=== PATIENT | female | born 1965 | race Caucasian/White ===

== ENCOUNTER → 2017-09-16 10:53 | Outpatient (CLI) | payer BC, SELFPAY ==
--- NOTE | 2017-09-16 10:58 | XR_ITS ---
XR foot RT min 3V HISTORY: Foot pain ITS.REASON: PLANTAR FASCIITIS ORDERING PHYSICIAN: Rupesh Gee MD PATIENT AGE: 52 years COMPARISON: None FINDINGS: No fracture or dislocation. No lytic or blastic change. There is normal mineralization.. The joint spaces are well-preserved. No significant degenerative/arthritic changes. No erosive changes evident. There is only a small calcaneal spur noted IMPRESSION: Negative, no acute finding
== END ==
PROVIDERS: PCP Family Medicine; Visit Provider Family Medicine
DX: M72.2 Plantar fascial fibromatosis (principal)
CPT/HCPCS: 73630

== ENCOUNTER 2017-11-15 13:00 | Outpatient (RCR) | payer BC, SELFPAY ==
--- NOTE | 2017-11-04 15:41 | HMH.PTOPEV ---
PT Outpatient Evaluation Rehab PT Outpatient Evaluation Start: 11/04/17 15:30 Freq: Status: Active Protocol: Document 11/04/17 15:31 JOSIAS (Rec: 11/04/17 15:40 JOSIAS [id number]) Electronically Signed By Derek Garcia, PT 11/04/17 15:31 Outpatient Therapy Subjective History Subjective History Pt presents acute LBP from lifting/twisting injury while carrying heavy pack of bottled water on 11/02/17. Pt reports R sided LBP w/radicular s/s down R LE to lateral thigh area. Pt reports no h/o previous LBP/injury. Chief Complaint Pain Stiff Swelling Paresthesia Symptom Type Ache Throb Sharp Dull Symptoms Relieved By Prescription Meds Symptoms Aggravated By Bending/Stooping Twisting Lifting Prior Functional Limitations None Current Functional Limitations Lifting Housework Sitting Bending/Stooping Symptom Description Constant but Variable Level of pain today (0-10) 5 Pain scale - at its best (0-10) 5 Pain scale - at its worst (0-10) 9 Lumbopelvic Eval Posture Thoracic Spine Posture Standing Position Neutral Lumbar Spine Posture Standing Position Flattened Assistive device Assistive Devices None / NA Gait Observation General Gait Pattern Observation Antalgic Gait Palapation tenderness right paraspinal tenderness Yes: 3/4 buttock tenderness Yes: 3/4 Accessory Movement L3 right L4 right Range of Motion Lumbar Spine Active Flexion Range of 0-25 Motion (degrees) Lumbar Spine Active Extension Range of 0-20 Motion (degrees) Left Lumbar Spine Lateral Flexion Active 0-10 Range of Motion (degrees) Right Lumbar Spine Lateral Flexion 0-15 Active Range of Motion (degrees) Lumbar Spine ROM Limitations Pain Manual Muscle Test Right Knee Extension Strength Grade 4 Good Knee Flexion Strength Grade 4 Good Hip Flexion Strength Grade 4- Good- Extensor Hallucis Longus Strength Grade 5 Normal Ankle Dorsiflexion Strength Grade 5 Normal Gastronemius/Soleus Strength Grade 5 Normal DTR Rt Patellar 1+ Lt Patellar 1+ Rt Gastroc/Wendy
== END 2017-11-15 13:01 | disposition home or self-care (01) ==
LOC: PT 13:00
PROVIDERS: Family Provider Family Medicine; PCP Family Medicine; Visit Provider Family Medicine
DX: M54.41 Lumbago with sciatica, right side (principal)
CPT/HCPCS: 97010; 97012; 97014; 97035; 97110; 97140; 97163; G0283

== ENCOUNTER 2018-06-22 08:39 | Outpatient (RCR) | payer BC, SELFPAY | END 2018-06-22 08:45 | disposition home or self-care (01) | LOC: PT 08:39 | PROVIDERS: Visit Provider Podiatrist | DX: M54.16 Radiculopathy, lumbar region (principal) | CPT/HCPCS: 97010; 97014; 97163; G0283 ==

== ENCOUNTER → 2020-02-28 09:31 | Outpatient (CLI) | payer BC, SELFPAY ==
--- NOTE | 2020-02-28 09:37 | US_ITS ---
PROCEDURE: US ABDOMEN LIMITED CLINICAL INDICATION: RUQ PAIN COMPARISON: No exams were available for comparison FINDINGS: PANCREAS: Unremarkable. No obvious mass or abnormal fluid collection. No ductal dilatation LIVER: No focal liver lesions demonstrated. Homogeneous echogenicity. No intrahepatic biliary ductal dilatation evident. There is appropriate direction of blood flow within a non dilated portal vein RIGHT KIDNEY: There is a septated cyst along the upper pole of the right kidney at 4.2 x 2.7 cm. GALLBLADDER: No gallstones, gallbladder wall thickening, pericholecystic fluid, or biliary dilatation. IMPRESSION: Septated right renal cyst otherwise negative right upper quadrant ultrasound. Dictated by: Marcos Gillette MD 02/28/2020 12:58 Marcos Gillette MD in [place] 02/28/2020 12:58
== END ==
PROVIDERS: PCP Family Medicine; Visit Provider Family Medicine
DX: R10.11 Right upper quadrant pain (principal)
CPT/HCPCS: 76705

== ENCOUNTER → 2020-04-08 10:28 | Outpatient (CLI) | payer BC, SELFPAY ==
--- NOTE | 2020-04-08 10:32 | NM_ITS ---
PROCEDURE: NM HEPATOBILIARY W PHARM CLINICAL INDICATION: RUQ ABD PAIN COMPARISON: No exams were available for comparison TECHNIQUE: DOSE: 8.6 mCi technetium Choletec and 1.3 mcg of CCK FINDINGS: Homogeneous activity is present within the hepatic parenchyma. Activity is present in the gallbladder by 10 minutes. Activity is present in the small bowel by 10 minutes. The gallbladder ejection fraction is calculated to be 12 percent. Mild rib pain reported with CCK infusion IMPRESSION: No evidence of common or cystic duct obstruction. Low gallbladder ejection fraction of 12 percent with mild pain reported with CCK infusion which could be seen with gallbladder dyskinesia. Please correlate with clinical parameters Dictated by: Marcos Gillette MD 04/08/2020 16:53 Marcos Gillette MD in [place] 04/08/2020 16:53
--- NOTE | 2020-04-08 10:46 | HMH.ITSHM ---
Current Home Medications as stated by this patient Marcie Gloria or community relations representative. []CYMBALTA SPIRONOLACTONE STEFANIA CHAVEZ
== END ==
PROVIDERS: PCP Family Medicine; Visit Provider Family Medicine
DX: R10.11 Right upper quadrant pain (principal)
CPT/HCPCS: 78227; A9537; J2805

== ENCOUNTER → 2020-05-15 10:39 | Outpatient (CLI) | payer BC, SELFPAY ==
--- NOTE | 2020-05-15 10:57 | ECG_ITS ---
APPROVED REPORT Exam: Resting ECG HR:72 bpm ECG Measurements Heart Rate 72 AXES TN 130 P 56 QRSd 82 QRS 49 QT 378 T 75 QTc 413 Conclusion Normal sinus rhythm Possible Left atrial enlargement Nonspecific T wave abnormality Abnormal ECG Electronically signed by : Aguilar Han, 05/16/2020 20:57:48
[2020-05-15 11:12] LABS: Basophils # 0.1 K/mm3 (0-0.2); Basophils % 1.5 % (0.1-2.0); Eosinophils # 0.2 K/mm3 (0.0-0.4); Eosinophils % 3.9 % (0.1-12.0); Hematocrit 41.5 % (37.0-47.0); Hemoglobin 13.9 g/dL (12.2-16.2); Lymphocytes # 1.6 K/mm3 (0.7-4.5); Lymphocytes % 33.2 % (10-50); Mean Corpuscular HGB Conc 33.5 g/dL (31.8-35.4); Mean Corpuscular Hemoglobin 29.8 pg (27.0-31.2); Mean Corpuscular Volume 89.1 fl (81-99); Mean Platelet Volume 7.6 fl (7.4-10.4); Monocytes # 0.4 K/mm3 (0.1-1.0); Monocytes % 7.3 % (1.7-9.3); Neutrophils # 2.6 K/mm3 (1.8-7.8); Neutrophils % 54.1 % (37.0-80.0); Platelet Count 296 K/mm3 (142-424); Red Blood Count 4.66 M/mm3 (4.20-5.40); Red Cell Distribution Width 13.6 % (11.5-17.5); White Blood Count 4.8 K/mm3 (4.8-10.8)
[2020-05-15 13:20] LABS: Coronavirus 19 IgG Antibody Negative (Negative); Coronavirus 19 IgM Antibody Negative (Negative)
[2020-05-15 13:25] LABS: Chloride 100 mmol/L (98-107); Potassium 4.5 mmoL/L (3.5-5.1); Sodium 137 mmol/L (136-145)
[2020-05-15 13:28] LABS: Alanine Aminotransferase 22 U/L (12-78); Albumin Level 4.8 g/dl (3.5-5.0); Albumin/Globulin Ratio 1.7 (1.1-1.8); Alkaline Phosphatase 68 U/L (38-126); Anion Gap 12.5 mEq/L (5-15); Aspartate Amino Transferase 25 U/L (14-36); Bilirubin,Total 0.5 mg/dl (0.2-1.3); Blood Urea Nitrogen 13 mg/dl (7-17); Carbon Dioxide 29 mmol/L (22.0-30.0); Estimated Glomerular Filt Rate 87 ml/min (>60); GFR (African American) 105 ML/MIN (>60); Globulin 2.9 g/dL (1.3-3.2); Total Protein,Serum 7.7 g/dl (6.3-8.2)
[2020-05-15 13:29] LABS: Calcium 10.3 mg/dl (8.4-10.2); Glucose 106 mg/dl (74-100)
== END ==
PROVIDERS: Visit Provider Surgery
DX: Z01.812 Encounter for preprocedural laboratory examination (principal); Z11.52 Encounter for screening for COVID-19; K82.8 Other specified diseases of gallbladder
CPT/HCPCS: 36415; 80053; 85025; 86328; 93005

== ENCOUNTER 2020-05-17 06:08 | Day surgery (SDC) | payer BC, SELFPAY ==
[2020-05-13 10:45] VITALS: BMI 25.7
[2020-05-17] VITALS (15 sets, daily range): BP systolic 144–163; BP diastolic 81–98; PULSE 69–79; RESP 18; TEMP 36.1–43; O2SAT 96–100
--- NOTE | 2020-05-17 06:51 | HMH.ANESCL ---
[facility] Anesthesia Checklist - Structural Data Admitted From: Home Planned Operative Procedure/s: tripp connellye Consent for Planned Operative Procedure(s) Verified: Yes - Additional verifications Anesthesia Reactions: No Hx Blood Transfusions: Yes Blood Transfusion Reaction: No - Airway Assessment C-Spine Mobility Assessed: Yes TMJ Mobility Assessed: Yes Dentition: Good Dentition - Neurological Assessment Level of Consciousness: Awake, Alert, Appropriate - Anesthesia Plan Anesthesia Risk discussed: Yes Anesthesia Plan: Verified ASA Class: II Anesthesia Type: General [facility] History I have reviewed the patient's past medical history: Yes Medical History: Denies:: Cancer, Diabetes Mellitus Type 1, Diabetes Mellitus Type 2, Internal Pacemaker, MRSA, Seizures *Have you ever received a pneumonia vaccine?: No *Have you received a flu vaccine this season?: Yes Other Medical History: Denies: Blood Transfusion Reaction Anesthesia experience/problems:: none Laterality Cases: Right: Other Other Surgeries: Yes: Colonoscopy, Hysterectomy-Partial. No: Pacemaker Amputation: No Fractures: Yes (WRIST) - *Social History Last grade of school completed: Advanced degree Smoking Status: Never smoker Alcohol Intake: current Alcohol Intake Frequency:: holidays/special occasions only Substance Use Type: denies use *Occupational Status:: other Housing: house Household Members: children *Travel in the last 8 weeks: None Family Hx:: No significant family history
--- NOTE | 2020-05-17 07:55 | P.OP_ITS ---
Date of procedure: 05/17/20 Pre-op Diagnosis:: Biliary dyskinesia Post-op Diagnosis:: Chronic cholecystitis Procedure performed:: Laparoscopic cholecystectomy Surgeon:: Alexander Blanco MD Nurse Discharge Planner(s):: Srinivas NURSE MONITORING:: Aguilar Brown Anesthesia: GETA Estimated blood loss (mL): 10 Operative findings:: Infundibular thickening Enlarged node of [place] Operative note:: After informed consent was obtained, the patient was taken to the operating room and placed in the supine position. General anesthesia was induced and the abdomen was prepped and draped in a sterile fashion. After infiltration with local anesthetic an infraumbilical incision was made. A Veress needle was placed in position. The abdomen was insufflated. A 5 mm optical trocar was placed in position. Under direct visualization, a 12 mm trocar was placed in the subxiphoid position and 2 additional 5 mm trocars were placed in the right upper quadrant. The gallbladder was elevated up and over the liver margin. The tissue around the cystic duct was carefully dissected. 3 clips were placed proximally and the duct was transected with harmonic tristen. Harmonic tristen were then utilized to dissect the gallbladder away from the liver margin with careful attention to the control of the cystic artery. The gallbladder was placed in a retrieval bag and removed through the subxiphoid trocar site. The right upper quadrant was thoroughly irrigated. No active bleeding or bile leak was noted. Fascia at the subxiphoid trocar site was reapproximated utilizing the NeoClose device. The remaining trocars were removed. All wounds were irrigated and skin was closed with 4-0 Monocryl in a subcuticular fashion. Steri-Strips were applied. The patient's anesthetic agents were reversed and extubation was completed prior to transfer to recovery in stable condition. Condition: stable Disposition: PACU Specimens:: Gallbladder Complications:: No immediate
--- NOTE | 2020-05-17 08:08 | P.PN_ITS ---
[facility] Anesthesia Record Part I Intake, IV Amount: 450 Estimated blood loss (mL): 5 Urine output (mL): 0 Blood Products used (#): none Blood Pressure: 161/98 SaO2: 97 Pulse Rate: 74 Respiratory Rate: 18 Temperature: 97.2 F Patient is:: Drowsy, Stable Stable to PACU at:: 08:04
--- NOTE | 2020-05-17 12:45 | HMH.ANESII ---
[facility] Anesthesia Record Part II Discharge Time: 08:34 Destination: Surgical Day Care (OP Surgery) PACU nurse assessment reviewed?: Yes Patient Condition:: Good Anesthesia Complications:: None Swallowing reflex intact?: Yes Cyanosis?: No Blood Pressure: 150/82 Pulse Rate: 79 Temperature: 97.8 F Mental Status: Alert & Oriented Pain level:: 3 Nausea and/or vomitting:: None Intake, IV Amount: 50
== END 2020-05-17 09:40 | disposition home or self-care (01) ==
PROVIDERS: PCP Family Medicine; Visit Provider Surgery
PROC: 0FT44ZZ Resection of Gallbladder, Percutaneous Endoscopic Approach (ICD-10-PCS; CPT 47562; principal; 2020-05-17 07:30)
DX: K81.1 Chronic cholecystitis; Z79.899 Other long term (current) drug therapy
CPT/HCPCS: 47562; 96374; J2405; J2710

== ENCOUNTER 2021-01-26 11:47 | Emergency (ER) | payer BC, SELFPAY ==
[2021-01-26 11:50] VITALS: BP 140/89; PULSE 90; RESP 19; TEMP 36.8; O2SAT 98; BMI 24.7
--- NOTE | 2021-01-26 12:21 | HMH.EDUTC ---
[facility] [place] Disposition Clinical Impression: Sinusitis Qualifiers: Sinusitis location: unspecified location Chronicity: unspecified Qualified Code(s): J32.9 - Chronic sinusitis, unspecified Disposition: Home, Self-Care Condition on Discharge: Good Instructions: Sinusitis, Prednisone, Amoxicillin and Clavulanic Acid Additional Instructions: *Monitor Temp, Over the counter Motrin or Tylenol as directed/as needed Tylenol every 4 hours and Motrin every 6 hours (as long as your family doctor has told you that you can take it) for fever or pain. and straight to ER if unable to lower temp less than 101.0 after medication given *Warm salt water gargles may help to soothe the throat *Throat Lozenges *Warm fluids like tea with honey may help to soothe the throat *Sleep elevated *Humidifier/Vaporizer Your throat swab was sent for culture. Those results are typically sent to your primary care. Be sure to follow up in 2-3 days with your family doctor/primary care physician if no improvement so they can review those result and treat if necessary. If you don?t have a primary care doctor, I recommend you get one but in the mean time, you will have to return to a walk in clinic Follow up IMMEDIATELY for new or worsening symptoms or no Noticeable improvement over the next 48-72 hours. 911 for difficulty breathing or swallowing You were tested for today for COVID19 your test result should be back in the next 24-48 hours, you was given Handout to [facility] portal to check your results if you have issues logging on you may call the [facility] for your Results You was given a handout with instructions for Self Quarantine and Self isolation for while you wait on test results and what to do if they are positive If you are positive the Health Dept will be contacting you also Make sure to take your Vitamins Vit. C Vit D and Zinc if you can take them Prescriptions: Amoxicillin/Potassium Clav [Augmentin 875-125 Tablet] 1 tab PO Q12H 7 Days #14 tab Transmission Status: Pending to [facility] # predniSONE [Deltasone 10mg tablet] 10 mg PO BID 5 Days #10 tab Transmission Status: Pending to [facility] # Benzonatate [Tessalon Perle 100mg Cap*] 100 mg PO TID PRN #15 cap PRN Reason: Cough Transmission Status: Pending to [facility] #[id number] Referrals: Rupesh Gee MD [Primary Care Provider] - As needed Forms: Work/School Release Time of Disposition: 12:38 Medical Decision Making - [place] Inquiry Pt receiving controlled substance: No [place] was queried for this patient: No Vital Signs: 01/26/21 11:50 Temperature 98.3 F Temperature Source Oral Pulse Rate [Right Brachial] 90 Respiratory Rate 19 Blood Pressure [Right Arm] 140/89 Blood Pressure Mean [Right Arm] 106 Blood Pressure Source [Right Arm] Automatic Cuff Blood Pressure Position [Right Arm] Sitting 02 Sat by Pulse Oximetry 98 Oxygen Delivery Method Room Air Orders (Tests/Meds): ORDERS Category Date Time Status Covid-19 Nasal PCR ([facility]) Routine Lab 01/26/21 12:21 Ordered [facility] UTC HPI - General Stated complaint: Upper Resp congestion Time Seen by Provider: 01/26/21 12:22 Mode of Arrival: Ambulatory Source of Information: Patient Limitations: No Limitations Description of Symptoms (Recalled from Triage Doc. by RN): PATIENT C/O SINUS PRESSURE AND CONGESTION SINCE WEDNESDAY HEENT Symptoms (Recalled from RN notes): Yes Resp Symptoms (Recalled from RN notes): No Skin Symptoms (Recalled from RN notes): No MS Symptoms (Recalled from RN notes): No Functional Status (Recalled from RN notes): WNL - History of Present Illness Provider Complaint: Patient states that she has not felt well for over a week States that she is having sinus pain and pressure along with dry hacky cough since Last States that she has been around her son that had strep throat and was around alot of people at her fathers so she was concerned with COVID exposure so she c
[2021-01-26 12:38] LABS: UTC Strep Screen (Rapid) Negative (Negative)
[2021-01-26 12:40] VITALS: BP 140/89; PULSE 90; RESP 19; TEMP 36.8; O2SAT 98
== END 2021-01-26 12:46 | disposition home or self-care (01) ==
PROVIDERS: Emergency Provider Nurse Practitioner; PCP Family Medicine
DX: U07.1 COVID-19 (principal); J32.9 Chronic sinusitis, unspecified
CPT/HCPCS: 87880; 99203; C9803; G0463; U0003; U0005

== ENCOUNTER → 2021-03-24 11:19 | Outpatient (CLI) | payer BC, SELFPAY ==
[2021-03-24 11:50] LABS: Basophils # 0.1 K/mm3 (0-0.2); Basophils % 1.2 % (0.1-2.0); Eosinophils # 0.2 K/mm3 (0.0-0.4); Eosinophils % 3.3 % (0.1-12.0); Hematocrit 42.1 % (37.0-47.0); Hemoglobin 14.1 g/dL (12.2-16.2); Lymphocytes % 34.1 % (10-50); Mean Corpuscular HGB Conc 33.5 g/dL (31.8-35.4); Mean Corpuscular Hemoglobin 30.1 pg (27.0-31.2); Mean Platelet Volume 8.9 fl (7.4-10.4); Monocytes # 0.3 K/mm3 (0.1-1.0); Monocytes % 4.7 % (1.7-9.3); Neutrophils # 3.3 K/mm3 (1.8-7.8); Neutrophils % 56.7 % (37.0-80.0); Platelet Count 306 K/mm3 (142-424); Red Blood Count 4.68 M/mm3 (4.20-5.40); Red Cell Distribution Width 13.4 % (11.5-17.5); White Blood Count 5.7 K/mm3 (4.8-10.8)
[2021-03-24 14:01] LABS: Alanine Aminotransferase 16 U/L (12-78); Albumin Level 4.7 g/dl (3.5-5.0); Albumin/Globulin Ratio 1.8 (1.1-1.8); Alkaline Phosphatase 70 U/L (38-126); Anion Gap 12.7 mEq/L (5-15); Aspartate Amino Transferase 29 U/L (14-36); Bilirubin,Total 0.4 mg/dl (0.2-1.3); Blood Urea Nitrogen 18 mg/dl (7-17); Calcium 9.9 mg/dl (8.4-10.2); Carbon Dioxide 31 mmol/L (22.0-30.0); Chloride 98 mmol/L (98-107); Chol/HDL Ratio 3.3 (1-3.5); Cholesterol 238 mg/dl (140-200); Estimated Glomerular Filt Rate 86 ml/min (>60); GFR (African American) 104 ML/MIN (>60); Globulin 2.6 g/dL (1.3-3.2); Glucose 100 mg/dl (74-100); HDL Cholesterol 73 mg/dl (40-60); Potassium 4.7 mmoL/L (3.5-5.1); Sodium 137 mmol/L (136-145); Total Protein,Serum 7.3 g/dl (6.3-8.2); Triglycerides 162 mg/dl (30-150); VLDL Cholesterol 32 mg/dL (0-40)
[2021-03-24 14:12] LABS: Direct LDL Cholesterol 125.89 mg/dL (100-129)
[2021-03-24 14:18] LABS: 25-OH Vitamin D, Total 59.5 ng/mL (30-100)
[2021-03-24 15:04] LABS: Vitamin B12 > 1000 pg/mL (239-931)
[2021-03-24 15:47] LABS: Thyroid Stimulating Hormone 1.92 uIU/mL (0.465-4.68)
== END ==
PROVIDERS: Visit Provider Family Medicine
DX: I10 Essential (primary) hypertension (principal); E55.9 Vitamin D deficiency, unspecified; E53.8 Deficiency of other specified B group vitamins; Z79.899 Other long term (current) drug therapy
CPT/HCPCS: 36415; 80053; 80061; 82306; 82607; 84443; 85025

== ENCOUNTER 2021-03-26 10:50 | Outpatient (RCR) | payer BC, SELFPAY ==
--- NOTE | 2021-03-26 11:44 | HMH.PTOPEV ---
PT Outpatient Evaluation Rehab PT Outpatient Evaluation Start: 03/26/21 10:58 Freq: Status: Active Protocol: Document 03/26/21 11:27 EDWIN (Rec: 03/26/21 11:36 EDWIN [id number]) Electronically Signed By Major Navas, PT 03/26/21 11:27 Outpatient Therapy Subjective History Subjective History Patient is a 55 year old female presenting to outpatient PT with reports of chronic B cervical spine pain of insidious onset. Patient also reports acute L shoulder pain after a reaching/lifting accident at work. No imaging to report. Comorbidities include hx of HTN, cholecystectomy and R wrist ORIF. Chief Complaint Pain,Stiff Symptom Type Throb,Burning Symptoms Relieved By Rest/Positioning,Heat,OTC Meds Symptoms Aggravated By Physical Activity,Lifting Prior Functional Limitations None Current Functional Limitations Reaching,Lifting,Housework, Driving,Sleeping,Recreation Activity Symptom Description Constant but Variable Level of pain today (0-10) 4 Pain scale - at its best (0-10) 4 Pain scale - at its worst (0-10) 6 Cervical Eval Palpation Cervical Muscles R Suboccipital,L Suboccipital, R Upper Trapezius,L Upper Trapezius Cervical/Thoracic Palpation Findings Tenderness Posture Head/C-Spine Posture Sitting Position Neutral Position Head/C-Spine Posture Standing Position Neutral Position Flexibility Deficits Upper Trapezius Muscle Length (R) Moderate Tightness,(L) Moderate Tightness Levaetor Scapulae Muscle Length (R) Moderate Tightness,(L) Moderate Tightness Pectoralis Minor Muscle Length (R) Moderate Tightness,(L) Moderate Tightness Passive Joint Mobility Cervical PIVM WNL: R OA L OA R AA L AA R C2/3 L C2/3 R C3/4 L C3/4 R C4/5 L C4/5 R C5/6 L C5/6 R C6/7 L C6/7
== END 2021-03-26 10:55 | disposition home or self-care (01) ==
LOC: PT 10:50
PROVIDERS: PCP Family Medicine; Visit Provider Family Medicine
DX: M25.512 Pain in left shoulder (principal); M62.838 Other muscle spasm
CPT/HCPCS: 97163

== ENCOUNTER → 2021-11-04 15:44 | Outpatient (POV) | payer SELFPAY | PROVIDERS: Visit Provider Dermatology | DX: Z00.00 Encounter for general adult medical examination without abnormal findings (principal) ==

== ENCOUNTER → 2021-11-05 10:02 | Outpatient (CLI) | payer SELFPAY ==
--- NOTE | 2021-11-05 10:07 | CT_ITS ---
FINAL REPORT TECHNIQUE: Thin section axial images were obtained through the heart and coronary arteries per CT coronary calcium score protocol. This study was performed with techniques to keep radiation doses as low as reasonably achievable (ALARA). Individualized dose reduction techniques using automated exposure control or adjustment of mA and/or kV according to the patient's size were employed. CLINICAL HISTORY: High cholesterol, family hx of heart disease FINDINGS: On the axial images, there is calcification within right coronary artery. This gives a coronary artery calcium score of 1 based on the Agatston scale. This coronary calcium score places the patient within the 41st percentile based on age and gender. The heart is normal in size. There is no pleural or pericardial effusion. Limited evaluation of the lungs reveal no suspicious nodule. IMPRESSION: Calcium score of 1 placing the patient at the 41st percentile. Reviewed, Interpreted and Dictated by River Rico MD Transcribed by Vania Fleming Authenticated and . [facility]
== END ==
PROVIDERS: PCP Family Medicine; Visit Provider Family Medicine
DX: Z13.6 Encounter for screening for cardiovascular disorders (principal)
CPT/HCPCS: 75571

== ENCOUNTER 2021-12-13 09:44 | Emergency (ER) | payer SELFPAY ==
[2021-12-13 10:10] VITALS: BP 146/88; PULSE 98; RESP 19; TEMP 36.9; O2SAT 97; BMI 26.1
[2021-12-13 10:16] LABS: Apearance,Urine Cloudy (Clear); Bilirubin,Urine Negative (Negative); Blood, Urine 3+ (Negative); Color,Urine Dark Yellow (Yellow); Glucose,Urine (UA) Negative (Negative); Ketones,Urine Negative (Negative); PH,Urine 7.5 (5.0-8.5); Protein,Urine Negative (Negative); Specific Gravity, Urine 1.015 (1.005-1.030)
[2021-12-13 10:17] LABS: UTC Leukocyte Esterase,Urine 3+ (Negative); UTC Nitrate,Urine Negative (Negative); Urobilinogen,Urine 0.2 EU/dl (0.2)
--- NOTE | 2021-12-13 10:25 | HMH.EDUTC ---
[facility] [place] Clinical Impression: UTI (urinary tract infection) Qualifiers: Urinary tract infection type: acute cystitis Hematuria presence: with hematuria Qualified Code(s): N30.01 - Acute cystitis with hematuria Disposition: Home, Self-Care Condition on Discharge: Good Instructions: Urinary Tract Infection Additional Instructions: Increase fluids, water and not soda or tea. Can drink cranberry juice or cranberry extract. White front to back Wear cotton underwear Empty bladder after intercourse Start antibiotics immediately and make sure you take the full course although you may start to see improvement over the next 48 hours. You can eat yogurt or take probiotics to decrease diarrhea or yeast infection caused by the antibiotic Be sure to follow-up anytime for new or worsening symptoms in 48 hours for wound urine culture results be sure to let you PCP no recent urine for culture so they can request records and ensure that you have appropriate antibiotic if you are not getting better or getting worse. If symptoms worsen or do not improve return or be seen in the ER. Follow-up with primary care this week. Prescriptions: cephALEXin [Cephalexin 500mg Tab] 500 mg PO BID 7 Days #14 tab Transmission Status: Pending to [facility] Referrals: Rupesh Gee MD [Primary Care Provider] - Time of Disposition: 10:31 Medical Decision Making - [place] Inquiry Pt receiving controlled substance: No Vital Signs: 12/13/21 10:10 Temperature 98.5 F Temperature Source Oral Pulse Rate [Right Brachial] 98 H Respiratory Rate 19 Blood Pressure [Right Arm] 146/88 H Blood Pressure Mean [Right Arm] 107 Blood Pressure Source [Right Arm] Automatic Cuff Blood Pressure Position [Right Arm] Sitting 02 Sat by Pulse Oximetry 97 Oxygen Delivery Method Room Air - Lab Data Lab Results 12/13/21 10:04: Urine Color Dark yellow, Urine Appearance Cloudy, Urine pH 7.5, Ur Specific [place] 1.015, Urine Protein Negative, Urine Glucose (UA) Negative, Urine Ketones Negative, Urine Blood 3+, Urine Nitrate Negative, Urine Bilirubin Negative, Urine Urobilinogen 0.2, Ur Leukocyte Esterase 3+ A Orders (Tests/Meds): ORDERS Category Date Time Status Urine Culture Stat Micro 12/13/21 10:16 Ordered [facility] [place] HPI - General Chief complaint: Urgent Treatment Center Stated complaint: Possible UTI Time Seen by Provider: 12/13/21 10:25 Mode of Arrival: Ambulatory Source of Information: Patient Limitations: No Limitations Description of Symptoms (Recalled from Triage Doc. by RN): PATIENT C/O FREQUENT URINATION, PRESSURE IN BLADDER, AND STRONG ODOR TO URINE SINCE LAST NIGHT HEENT Symptoms (Recalled from RN notes): No Resp Symptoms (Recalled from RN notes): No Skin Symptoms (Recalled from RN notes): No MS Symptoms (Recalled from RN notes): No Functional Status (Recalled from RN notes): WNL - History of Present Illness Provider Complaint: 56 yr old female presents for urinary freq,urgency,burning,low back pain and pelvic pain - Related Data Home Medications Medication Instructions Recorded Confirmed Duloxetine HCl 30 mg PO DAILY 12/04/18 05/29/20 cholecalciferol (vitamin D3) 25 25 mcg PO DAILY 04/16/20 05/29/20 mcg (1,000 unit) capsule cyanocobalamin (vitamin B-12) 3,000 mcg PO DAILY 04/16/20 05/29/20 3,000 mcg capsule mirabegron 50 mg tablet,extended 50 mg PO DAILY 04/16/20 05/29/20 release 24 hr multivitamin 1 tab PO DAILY 04/16/20 05/29/20 soy isoflavone-black cohosh 1 cap PO DAILY 04/16/20 05/29/20 root-magnolia bark 155 mg capsule spironolactone 100 mg tablet 100 mg PO DAILY 04/16/20 05/29/20 vitamin E (dl, acetate) 90 mg (200 450 mg PO DAILY 04/16/20 05/29/20 unit) capsule Bacillus Coagulans/Inulin 1 each PO DAILY 05/13/20 05/29/20 [Probichew 21 Billion Cell Chw] Soy Isofla/Blk Cohosh/Mag Bark 155 mg PO DAILY 05/13/20 05/29/20 [Estroven 155 mg Capsule] Zinc 50 mg PO DAILY 05/13/20 05/29/20 Previou
[2021-12-13 10:34] VITALS: BP 146/88; PULSE 98; RESP 19; TEMP 36.9; O2SAT 97
== END 2021-12-13 10:36 | disposition home or self-care (01) ==
PROVIDERS: Emergency Provider Nurse Practitioner Family; PCP Family Medicine
DX: N30.01 Acute cystitis with hematuria (principal)
CPT/HCPCS: 81003; 87086; 87088; 87186; 99212; G0463

== ENCOUNTER 2021-12-31 09:09 | Emergency (ER) | payer BC, SELFPAY ==
[2021-12-31 10:10] VITALS: BP 164/102; PULSE 83; RESP 18; TEMP 36.8; O2SAT 97; BMI 26.5
--- NOTE | 2021-12-31 10:40 | EXP.UTC ---
Discharge Plan Disposition Patient Disposition: Home, Self-Care Condition: Good Prescriptions Prescriptions: New methylprednisolone [Medrol (Woodrow)] 4 mg tablets,dose pack See Rx Instructions .Route .COMPLEX 6 Days Qty: 21 0RF Rx Instructions: taper pack; No Action spironolactone 100 mg tablet 100 mg PO DAILY Myrbetriq 50 mg tablet extended release 24 hr 50 mg PO DAILY multivitamin Tablet 1 tab PO DAILY cyanocobalamin (vitamin B-12) 3,000 mcg capsule 3,000 mcg PO DAILY vitamin E (dl, acetate) 200 unit capsule 450 mg PO DAILY cholecalciferol (vitamin D3) 25 mcg (1,000 unit) capsule 25 mcg PO DAILY Estroven 155 mg capsule 1 cap PO DAILY cephalexin 500 MG tablet 500 mg PO BID 7 Days Qty: 14 0RF duloxetine 30 MG capsule,delayed release(DR/EC) 30 mg PO DAILY Label Comments: TAKE 1 CAPSULE BY MOUTH EVERY DAY zinc 50 MG tablet 50 mg PO DAILY soy isofla-blk cohosh-mag bark 155 MG capsule 155 mg PO DAILY bacillus coagulans-inulin 1 EACH tablet,chewable 1 each PO DAILY prednisone 10 MG tablet 10 mg PO BID 5 Days Qty: 10 0RF amoxicillin-pot clavulanate 1 EACH tablet 1 tab PO Q12H 7 Days Qty: 14 0RF benzonatate 100 MG capsule 100 mg PO TID PRN (Reason: Cough) Qty: 15 0RF Referrals Follow up/Referrals: Rupesh Gee MD [Primary Care Provider] - See instructions Activity Restrictions/Add. Instructions Additional Instructions/Restrictions: Cool compresses may help with swelling Over the counter Benadryl for itching Start oral steriods tomorrow Return if needed Straight to ER if any life threatening symptoms Clinical Impressions Clinical Impression: Allergic reaction Discharge ED Provider: Elyssa Judd [facility] [place] General Stated complaint: Possible insect bite RT ankle inflammation Mode of Arrival: Ambulatory Source of Information: Patient Limitations: No Limitations Time Seen by Provider: 12/31/21 10:40 Description of Symptoms (Recalled from Triage Doc. by RN): PATIENT C/O REACTION TO A BUG BITE/STING TO RIGHT OUTER ANKLE THAT HAPPENED LAST NIGHT. REDNESS, SWELLING AND WARMTH NOTED TO SITE HEENT Symptoms (Recalled from RN notes): No Resp Symptoms (Recalled from RN notes): No Skin Symptoms (Recalled from RN notes): Yes MS Symptoms (Recalled from RN notes): No Functional Status (Recalled from RN notes): WNL History of Present Illness Provider Complaint: Patient states that she was bitten or stung by something on the outside of her right ankle States that she has had swelling and redness ever since States that she has took several zyrtec but not helped much and sometimes has to have a shot Related Data Home Medications Medication Instructions Recorded Confirmed duloxetine 30 mg capsule,delayed 30 mg PO DAILY Anxiety 12/04/18 05/29/20 release cholecalciferol (vitamin D3) 25 25 mcg PO DAILY Supplement 04/16/20 05/29/20 mcg (1,000 unit) capsule cyanocobalamin (vitamin B-12) 3,000 mcg PO DAILY Supplement 04/16/20 05/29/20 3,000 mcg capsule mirabegron 50 mg tablet,extended 50 mg PO DAILY overactive bladder 04/16/20 05/29/20 release 24 hr (Myrbetriq) multivitamin 1 tab PO DAILY Supplement 04/16/20 05/29/20 soy isoflavone-black cohosh 1 cap PO DAILY Supplement 04/16/20 05/29/20 root-magnolia bark 155 mg capsule (Estroven) spironolactone 100 mg tablet 100 mg PO DAILY blood pressure 04/16/20 05/29/20 vitamin E (dl, acetate) 90 mg (200 450 mg PO DAILY supplements 04/16/20 05/29/20 unit) capsule bacillus coagulans 21 billion 1 each PO DAILY Supplement 05/13/20 05/29/20 cell-inulin 1 gram chewable tablet soy isoflavone-black cohosh 155 mg PO DAILY Supplement 05/13/20 05/29/20 root-magnolia bark 155 mg capsule zinc 50 mg tablet 50 mg PO DAILY Supplement 05/13/20 05/29/20 Previous Rx's Medication Instructions Recorded amoxicillin 875 mg-potassium 1 tab PO Q12H 7 days #14 tabs
[2021-12-31 10:58] VITALS: BP 164/102; PULSE 83; RESP 18; TEMP 36.8; O2SAT 97
== END 2021-12-31 11:05 | disposition home or self-care (01) ==
PROVIDERS: Emergency Provider Nurse Practitioner; PCP Family Medicine
DX: T78.40XA Allergy, unspecified, initial encounter (principal); M25.471 Effusion, right ankle
CPT/HCPCS: 96372; 99212; G0463

== ENCOUNTER 2022-01-19 08:14 | Emergency (ER) | payer BC, SELFPAY ==
[2022-01-19 08:40] VITALS: BP 130/80; PULSE 103; RESP 18; TEMP 37.4; O2SAT 98; BMI 24.1
--- NOTE | 2022-01-19 08:46 | EXP.UTC ---
Discharge Plan Disposition Patient Disposition: Home, Self-Care Condition: Good Prescriptions Prescriptions: No Action spironolactone 100 mg tablet 100 mg PO DAILY multivitamin Tablet 1 tab PO DAILY cyanocobalamin (vitamin B-12) 3,000 mcg capsule 3,000 mcg PO DAILY vitamin E (dl, acetate) 200 unit capsule 450 mg PO DAILY cholecalciferol (vitamin D3) 25 mcg (1,000 unit) capsule 25 mcg PO DAILY buspirone 10 mg tablet 10 mg PO BID Perdiem Overnight Relief 15 mg tablet 15 mg PO DAILY tolterodine [Detrol LA] 4 mg capsule,extended release 24hr 4 mg PO DAILY Qty: 30 6RF Premarin 0.625 mg tablet 0.625 mg PO DAILY 30 Days Qty: 30 6RF Rx Instructions: cyclically nitrofurantoin monohyd/m-cryst [Macrobid] 100 mg capsule 100 mg PO BID 7 Days Qty: 14 0RF Rx Instructions: must administer with a meal/food duloxetine 30 MG capsule,delayed release(DR/EC) 30 mg PO DAILY Label Comments: TAKE 1 CAPSULE BY MOUTH EVERY DAY Referrals Follow up/Referrals: Rupesh Gee MD [Primary Care Provider] - See instructions Activity Restrictions/Add. Instructions Additional Instructions/Restrictions: *Monitor Temp, Over the counter Motrin or Tylenol as directed/as needed Tylenol every 4 hours and Motrin every 6 hours (as long as your family doctor has told you that you can take it) for fever or pain. and straight to ER if unable to lower temp less than 101.0 after medication given *Warm salt water gargles may help to soothe the throat *Throat Lozenges? *Warm fluids like tea with honey may help to soothe the throat? *Sleep elevated *Humidifier/Vaporizer Your throat swab was sent for culture. Those results are typically sent to your primary care. Be sure to follow up in 2-3 days with your family doctor/primary care physician if no improvement so they can review those result and treat if necessary. If you don?t have a primary care doctor, I recommend you get one but in the mean time, you will have to return to a walk in clinic Follow up IMMEDIATELY for new or worsening symptoms or no Noticeable improvement over the next 48-72 hours. 911 for difficulty breathing or swallowing You were tested for today for COVID19 your test result should be back in the next 24-48 hours, you may check your results on the [facility] My Health Portal Make sure to take your Vitamins Vit. C Vit D and Zinc if you can take them Clinical Impressions Clinical Impression: Viral syndrome Stand Alone Forms Stand Alone Forms: Work/School Release Instructions Patient Instructions: DI for Viral Syndrome, DI for Fever (Symptom) -- Adult Discharge ED Provider: Elyssa Judd [facility] HPI General Stated complaint: headache,body aches,chills,sore throat Time Seen by Provider: 01/19/22 08:46 History of Present Illness Provider Complaint: Patient states that she started feeling bad over the weekend States that she has been having body aches, chills, headache, scratchy throat, pressure behind her eyes and over all not feeling well so today she came in to get checked out Related Data Home Medications Medication Instructions Recorded Confirmed duloxetine 30 mg capsule,delayed 30 mg PO DAILY Anxiety 12/04/18 01/08/22 release cholecalciferol (vitamin D3) 25 25 mcg PO DAILY Supplement 04/16/20 01/08/22 mcg (1,000 unit) capsule cyanocobalamin (vitamin B-12) 3,000 mcg PO DAILY Supplement 04/16/20 01/08/22 3,000 mcg capsule multivitamin 1 tab PO DAILY Supplement 04/16/20 01/08/22 spironolactone 100 mg tablet 100 mg PO DAILY blood pressure 04/16/20 01/08/22 vitamin E (dl, acetate) 90 mg (200 450 mg PO DAILY supplements 04/16/20 01/08/22 unit) capsule buspirone 10 mg tablet 10 mg PO BID 01/08/22 01/08/22 sennosides 15 mg tablet (Perdiem 15 mg PO DAILY 01/08/22 01/08/22 Overnight Relief) Previous Rx's Medication Instructions Recorded conjugated estrogens 0.
[2022-01-19 09:02] VITALS: BP 130/80; PULSE 103; RESP 18; TEMP 37.4; O2SAT 98
[2022-01-19 09:13] LABS: UTC Influenza A Antigen Negative (Negative); UTC Influenza B Antigen Negative (Negative); UTC Strep Screen (Rapid) Negative (Negative)
== END 2022-01-19 09:05 | disposition home or self-care (01) ==
PROVIDERS: Emergency Provider Nurse Practitioner; PCP Family Medicine
DX: B34.9 Viral infection, unspecified (principal); J02.9 Acute pharyngitis, unspecified; R51.9 Headache, unspecified; I10 Essential (primary) hypertension; M79.10 Myalgia, unspecified site; F32.A Depression, unspecified; F41.9 Anxiety disorder, unspecified; Z20.822 Contact with and (suspected) exposure to COVID-19; Z79.899 Other long term (current) drug therapy; Z91.013 Allergy to seafood
CPT/HCPCS: 87804; 87880; 99213; C9803; G0463; U0003; U0005

== ENCOUNTER 2024-07-19 13:31 | Outpatient (CLI) | payer BC, SELFPAY ==
--- NOTE | 2024-07-19 13:45 | US_ITS ---
PROCEDURE INFORMATION: Exam: US Left Breast, Complete Exam date and time: 07/19/2024 2:04 PM Age: 59 years old Clinical indication: Left breast pain. TECHNIQUE: Imaging protocol: Complete ultrasound of all four quadrants of the left breast and the retroareolar regions, including ultrasound of the axilla when performed. COMPARISON: No relevant prior studies available. If prior mammograms are provided, I am happy to add an addendum. FINDINGS: ULTRASOUND: Breast ultrasound findings: Left sonography, all 4 quadrants, retroareolar and the axilla. At 2 o'clock 4 cm from the nipple, oval hypoechoic mass with avascular septation and low-level echoes measuring 0.4 x 0.3 x 0.3 cm. Dilated retroareolar ducts with no related debris or Doppler flow. Sonographically unremarkable axillary lymph node. No specific area of pain annotated. IMPRESSION: See comments Probably benign cystic change on the left at 2 o'clock, six-month follow up left sonography recommended unless otherwise clinically indicated. Further evaluation of a painful abnormality should be based on clinical grounds regardless of radiographic findings or lack thereof. Correlation with mammography is recommended, and notation that all previous mammograms were at another facility. If there is no recent prior mammogram, advised recalling for mammography at this time. ASSESSMENT: BI-RADS Category 3: Probably benign.
== END 2024-07-19 23:59 | disposition home or self-care (01) ==
LOC: RAD 13:31
PROVIDERS: PCP Obstetrics & Gynecology; Visit Provider Obstetrics & Gynecology
DX: N64.4 Mastodynia (principal)
CPT/HCPCS: 76641

== ENCOUNTER 2024-08-24 10:54 | Outpatient (CLI) | payer BC, SELFPAY ==
--- NOTE | 2024-08-24 10:58 | XR_ITS ---
FINAL REPORT TECHNIQUE: Calcaneus 2 views CLINICAL HISTORY: PAIN COMPARISON: None FINDINGS: LEFT CALCANEUS: 2 views of the left calcaneus were obtained. A minimal plantar spur is identified. No acute bony abnormality is identified. The soft tissues appear unremarkable. IMPRESSION: A minimal plantar spur is present, otherwise unremarkable views of the calcaneus. Reviewed, Interpreted and Dictated by River Rico MD Transcribed by Emily Retana Authenticated and [facility]
== END 2024-08-24 23:59 | disposition home or self-care (01) ==
LOC: RAD 10:54
PROVIDERS: PCP Family Medicine; Visit Provider Family Medicine
DX: M79.672 Pain in left foot (principal); M77.32 Calcaneal spur, left foot
CPT/HCPCS: 73650

== ENCOUNTER 2024-09-15 15:40 | Outpatient (CLI) | payer BC, SELFPAY ==
--- NOTE | 2024-09-15 16:00 | MM_ITS ---
PROCEDURE INFORMATION: Exam: NM Left NM Tumor imaging limited Exam date and time: 09/15/2024 3:53 PM Age: 59 years old Clinical indication: Recalled following sonography 07/19/2024 for left breast pain. TECHNIQUE: Imaging protocol: Left NM Tumor imaging limited COMPARISON: 1. MG MAMMO SCREENING DIGITAL TOMOSYNTHESIS BILATERAL W CAD 11/30/2023 11:08 AM 2. MG MAMMO SCREENING DIGITAL TOMOSYNTHESIS BILATERAL W CAD 09/28/2022 8:49 AM 3. MG MAMMO SCREENING DIGITAL TOMOSYNTHESIS BILATERAL W CAD 08/12/2021 10:43 AM 4. MG MAMMO SCREENING DIGITAL TOMOSYNTHESIS BILATERAL W CAD 03/12/2020 3:21 PM FINDINGS: MAMMOGRAPHY: Breast mammogram findings: Breast composition: There are scattered areas of fibroglandular density. Mass: No suspicious mass. (oval 0.4 cm mass in the left upper outer quadrant middle to posterior 3rd may correspond to the mass seen on sonography 07/19/2024) Architectural distortion: None. Calcifications: No suspicious calcifications. Asymmetric density: No developing asymmetry. Skin thickening: None. Axillary adenopathy: None. IMPRESSION: See comments Left breast pain, stable mammographic pattern. Further evaluation of a painful abnormality should be based on clinical grounds regardless of radiographic findings or lack thereof. No mammographic evidence of malignancy. Annual screening mammogram is due November 2024 unless otherwise clinically indicated. Note six-month follow-up left sonography recommended on 07/19/2024. ASSESSMENT: BI-RADS Category 2: Benign.
== END 2024-09-15 23:59 | disposition home or self-care (01) ==
LOC: RAD 15:40
PROVIDERS: PCP Family Medicine; Visit Provider Obstetrics & Gynecology
DX: R92.30 Dense breasts, unspecified (principal); R92.2 Inconclusive mammogram; N64.4 Mastodynia
CPT/HCPCS: 77061; 77065; G0279

== ENCOUNTER 2024-12-28 15:41 | Outpatient (CLI) | payer BC, SELFPAY ==
--- OUTSIDE RECORDS SUMMARY | 2023-11-23 05:00 | XMS_ITS ---
Author Organization [facility] Address [address] [facility] [address] [place] [id number] Care Team Providers Care Deputy Coroner Name Role Phone Rupesh Gee Primary Care Provider Allergies No Known Allergies Results Component Value Reference Range Notes Glucose (In-House) Reviewed date:11/24/2023 09:25:07 AM Interpretation:115 satisfactory Performing Lab: Notes/Report: 115 satisfactory blood glucose 115 74 - 106 mg/dL Glycohemoglobin A1c (in hous e) Reviewed date:11/24/2023 09:25:07 AM Interpretation:5.4% Normal Performing Lab: Notes/Report: 5.4% Normal glycohemoglobin 5.4% 5 - 6.5 % P-Hepatic Function Panel Reviewed date:11/24/2023 09:25:06 AM Interpretation:Normal Performing Lab: Notes/Report: Test performed by [employer], [employer] [address] [place] [address] , [address], [place] [address] Gurinder Renae MD, Milling Machine Operator CLIA: [id number] Protein 7.1 6.0-8.3 g/dL Albumin 4.7 3.5-5.3 g/dL Alkaline Phosphatase 71 35-121 IU/L ALT (SGPT) 36 <5-47 IU/L AST (SGOT) 29 <5-40 IU/L Bilirubin, Total 0.3 <0.2-1.2 mg/dL Bilirubin, Direct <0.2 <0.2-0.3 mg/dL Bilirubin, Indirect See Comment 0.2-1.3 mg/dL Unable to calculate indirect bilirubin when total or direct bilirubin fall outside reportable range. REASON FOR VISIT 6 months Medications Medication SIG (Take, Route, Frequency, Duration) Notes Start Date End Date Status Vitamin B 12 500 MCG 1 tab(s) orally onc e a day; Duration: 30 day(s) Active Multiple Vitamin - 1 cap(s) orally once a day Active Spironolactone 50 MG 1 tablet Orally Onc e a day Active Vitamin E 1 CAP(S) ORALLY ONCE A DAY Active amLODIPine Besylate 5 MG 1 tablet Orally Once a day Active Rosuvastatin Calcium 20 MG TAKE 1 CAPSUL E BY MOUTH EVERY DAY Active Vitamin D 1 CAP(S) ORALLY ONCE DAILY Active DULoxetine HCl 30 MG 1 cap(s) orally onc e a day; Duration: 90 days Active Pantoprazole Sodium 20 MG 1 tablet Orall y Once a day; Duration: 90 days Active Vital Signs Blood pressure systolic 124 mm Hg 11/23/19 24 Blood pressure diastolic 70 mm Hg 024 Heart Rate 87 /min 11/23/2023 Height 63 in 11/23/2023 Weight 155.4 lbs 11/23/2023 BMI 27.52 kg/m2 11/23/2023 Encounters Encounter Location Date Provider Diagnosis [facility] [address] [facility] [address] [place], [place] [id number] 11/23/2023 Rupesh Gee Essential hypertensi on I10 ; Right knee pain, unspecified chronicity M25.561 ; Mixed hyperlipidemia E78.2 ; Elevated LFTs R79.89 and Hyperglycemia R73.9 Assessments Encounter Date Diagnosis (ICD Code) Assessment Notes Treatment Notes Treatment Clinical Notes Section Notes 11/23/2023 Essential hypertension (ICD-10 - I10) 11/23/2023 Right knee pain, unspecified chronicity (ICD-10 - M25.561) 11/23/2023 Mixed hyperlipidemia (ICD-10 - E78.2) 11/23/2023 Elevated LFTs (ICD-10 - R79.89) 11/23/2023 Hyperglycemia (ICD-10 - R73.9) Plan Of Treatment Medication Medication Name Sig Start Date Stop Date Notes Spironolactone 50 MG 1 tablet Orally Once a day amLODIPine Besylate 5 MG 1 tablet Orally Once a day Rosuvastatin Calcium 20 MG TAKE 1 CAPSUL E BY MOUTH EVERY DAY Next Appt Details Follow Up: 6 Months, Reason: Progress Notes * EL MILTON:1965 ( 59 yo F)Acc No.[id number]:11/23/2023 Progress Notes Patient: CHAPIN LYN Provider: Eve Gee M.D. :1965 A ge:58 Y S ex:Female Date:11/23/2023 Address:[facility] [address] , [place], [id number] Subjective: * Chief Complaints: * 1 . 6 months. * HPI: C ardiology: 58 year old female presents with c/o Blood Pressure Elevated?Pt here for 6 mo f/u on hypertension, states she is doing well and does not have any concerns.? c/o Hyperlipidemia P t is fasting today. * ROS: D ERMATOLOGY: no R zohra. n o H vladimir. G ASTROENTEROLOGY: no N ausea. n o V omiting. U ROLOGY: no D ifficulty urinating. n o B lood in urine. * Medical History: G [facility] - Dr. Pelayo, Hypertension, Irritable Bowel Syndrome, Overactive Bladder, Esophageal Reflux, Vitamin D Deficiency, Vitamin B 12 Deficiency. * Surgical History: T ubal Ligation 06/2005, Partial Hysterectomy, [facility]- [facility] 02[facility], Gum Graft 04/2019, Colonoscopy 2017, Cholecystectomy - [facility] 05/17/2020, EGD, Dr. Piper 01/2021, Colonoscopy 10/2021. * Hospitalization/Major Diagno stic Procedure: E [facility] ER - reaction 04/26/2016. * Family History: F ather: alive. M other: alive. 3 brother(s) , 1 sister(s) . 3 son(s) . . * Social History: C URRENT TOBACCO USE S moking Status: Patient does NOT smoke. C affeine: yes, frequency:. Home smoke detector use: yes. Marital Status: . Past smoking status: Smoking status: Does not smoke. * Medications: T aking Multiple Vitamin - Capsule 1 cap(s) orally once a day , Taking Vitamin B 12 500 MCG Tablet 1 tab(s) orally once a day , Taking Vitamin E 1 CAP(S) ORALLY ONCE A DAY , Taking Vitamin D 1 CAP(S) ORALLY ONCE DAILY , Taking DULoxetine HCl 30 MG Capsule Delayed Release Particles 1 cap(s) orally once a day , Taking Pantoprazole Sodium 20 MG Tablet Delayed Release 1 tablet Orally Once a day , Taking Rosuvastatin Calcium 20 MG Tablet TAKE 1 CAPSULE BY MOUTH EVERY DAY , Taking amLODIPine Besylate 5 MG Tablet 1 tablet Orally Once a day , Taking Spironolactone 50 MG Tablet 1 tablet Orally Once a day , Medication List reviewed and reconciled with the patient * Allergies: N .K.D.A. Objective: * Vitals: W t:155.4, Temp:98.0, BP:124/70, HR:87, Nurse:jae, Ht: 63, BMI:27.52. * Examination: C ardiology: General Appearance: p leasant, NAD. H eart sounds: R RR, normal S1, S2. L ungs: c lear, no rales or wheezes. E xtremities: no leg edema. K nee / Buchanan: Knee: right. I nspection: no swelling or redness. P alpation: tenderness on pes anserine bursa. C ollateral ligaments: intact medially and laterally. R yazan of motion: n ormal flexion and extension. ? Assessment: * Assessment: 1. E ssential hypertension - I10 (Primary) 2 . R ight knee pain, unspecified chronicity - M25.561 3 . M ixed hyperlipidemia - E78.2 4 .?Elevated LFTs - R79.89 5 . H yperglycemia - R73.9 Plan: * Treatment: 2. M ixed hyperlipidemia Continue Rosuvastatin Calcium Tablet, 20 MG, TAKE 1 CAPSULE BY MOUTH EVERY DAY. 3. E levated LFTs L AB: P-Hepatic Function Panel (Collection Date & Time - 11/23/2023 08:40 AM) N ormal Value Reference Range A lbumin 4.7 3.5-5.3 - g/dL * A lkaline Phosphatase 71 35-121 - IU/L * A LT (SGPT) 36 <5-47 - IU/L * A ST (SGOT) 29 <5-40 - IU/L * B ilirubin, Direct <0.2 <0.2-0.3 - mg/dL * B ilirubin, Indirect See Comment L 0.2-1.3 - mg/dL * B ilirubin, Total 0.3 <0.2-1.2 - mg/dL * P rotein 7.1 6.0-8.3 - g/dL * Arnol Adhikariira 11/24/2023 9:24:44 AM > Pt informed 4.?Hyperglycemia?LAB: Glucose (In-House) (Collection Date & Time - 11/23/2023)?115 satisfactory* Value Reference Range b lood glucose 115 74 - 106 mg/dL * Silvia Mcfarland 11/23/2023 10:0 2:45 AM > Arnol Adhikariira 11/24/2023 9:24:44 AM > Pt informed ?LAB: Glycohemoglobin A1c (in house) (Collection Date & Time - 11/23/2023)? 5.4% Normal* Value Reference Range g lycohemoglobin 5.4% 5 - 6.5 % * BrunaSilvia 11/23/2023 10:0 3:54 AM > OnofreStephanie 11/24/2023 9:24:44 AM > Pt informed * Procedure Codes: 8 2950 GLUCOSE TEST, 75036 GLYCATED HEMOGLOBIN TEST, Modifiers: QW * Follow Up: 6 Months * Images: Billing Information: * Visit Code: 05941 Office Visit, Est Pt., Level 4. * Procedure Codes: 64462 GLUCOSE TEST. 61608 GLYCATED HEMOGLOBIN TEST. Modifiers: QW * Electronic signature of Amelia Gee MD on 12/28/2024 at 03:43 PM EDT Sign off status: Pending * Provider: Eve Gee M.D. Date: 11/23/2023 Generated for Eduar cabral/Cindy/Rickeysmitting on: 0 12/28/2024 03:43 PM EDT History and Physical Notes * HPI (History of Present Illness) Category Sub-Category Detail Notes Category Not es Cardiology Blood Pressure Elevated Pt here for 6 mo f/u on hypertension, states she is doing well and does not have any concerns Hyperlipidemia Pt is fasting today Examination Category Sub-Category Detail Notes Category Not es Cardiology Lungs: clear, no rales or wheezes Heart sounds: RRR, normal S1, S2 Extremities: no leg edema General Appearance: pleasant, NAD Knee / Buchanan Palpation: tenderness on pes anserine b ursa Knee: right Inspection: no swelling or redne ss Range of motion: normal flexion and e xtension Collateral ligaments: intact medially an d laterally
--- OUTSIDE RECORDS SUMMARY | 2023-12-21 09:15 | XMS_ITS ---
Author Organization [facility] Address [address] [facility] [address] [facility] [address] [facility] [address] [place] [id number] Care Team Providers Care Arts Administrator Name Role Phone Rupesh Gee Primary Care Provider Katina Plummer Unavailable [phone] Allergies No Known Allergies REASON FOR VISIT [...] Provider Diagnosis [place] [address] [facility] [address] [place] [id number] 12/21/2023 Katina Plummer Bug bites W57.XXXA and [...] * CHAPIN MILTONDOB:1965 ( 59 yo F)Acc No.[id number]:12/21/2023 Progress Notes Patient: CHAPIN LYN Provider: JUNI Orozco :1965 A ge:58 Y S ex:Female Date:12/21/2023 Address:[address], [place], [id number] Pcp:Rupesh Gee Subjective: * Chief Complaints: * [...] Ligation 06/2005, Partial Hysterectomy, Bladder [facility]uck- [facility] 02/2009, Gum Graft 04/2019, Colonoscopy 2017, Cholecystectomy - [facility] 05/17/2020, EGD, Dr. Piper 01/2021, Colonoscopy 10/2021. * Hospitalization/Major Diagno stic Procedure: E [facility] ER - reaction 04/26/2016. * Family History: [...] encounter) * Procedure Codes: J 1100 Dexamethasone, 64708 ADMINISTRATION OF INJECTION * Follow Up: p rn * Images: Billing Information: * Visit Code: 79587 Office Visit, Est Pt., Level 3. * Procedure Codes: J1100 Dexamethasone. 54108 ADMINISTRATION OF INJECTION. * Electronic signature of Lesly Plummer APRN on 12/28/2024 at 03:43 PM EDT Sign off status: Pending * Provider: JUNI Orozco Date: 0 12/21/2023 Generated for Eduar Huerta on: 0 12/28/2024 03:43 PM EDT History and Physical Notes * Examination Category Sub-Category Detail Notes Category Not es General Examination Heart: RRR Lungs: CTAB A&P General Appearance: NAD, appears healthy , alert, pleasant; scratching her legs Skin: scattered whelps on bilateral lower legs Neurologic Exam: alert and oriented
--- OUTSIDE RECORDS SUMMARY | 2024-03-02 05:00 | XMS_ITS ---
Author Organization [facility] Address [facility] [facility] [address] [place] [phone] Care Team Providers Care Rubber Extrusion Machine Operator Name Role Phone Rupesh Gee Primary Care Provider [phone] Allergies No Known Allergies REASON FOR VISIT 6 months Medications Medication SIG (Take, Route, Frequency, Duration) Notes Start Date End Date Status Vitamin D 1 CAP(S) ORALLY ONCE DAILY Active Pantoprazole Sodium 20 MG 1 tablet Orall y Once a day; Duration: 90 days Active Rosuvastatin Calcium 20 MG TAKE 1 CAPSUL E BY MOUTH EVERY DAY; Duration: 90 days Active DULoxetine HCl 30 MG 1 cap(s) orally onc e a day; Duration: 90 days Active Vitamin E 1 CAP(S) ORALLY ONCE A DAY Active Vitamin B 12 500 MCG 1 tab(s) orally onc e a day; Duration: 30 day(s) Active Multiple Vitamin - 1 cap(s) orally once a day Active Spironolactone 50 MG 1 tablet Orally Onc e a day Active amLODIPine Besylate 5 MG 1 tablet Orally Once a day Active Vital Signs Blood pressure systolic 124 mm Hg 03/02/20 24 Blood pressure diastolic 80 mm Hg 024 Heart Rate 90 /min 03/02/2024 Height 63 in 03/02/2024 Weight 152.4 lbs 03/02/2024 BMI 26.99 kg/m2 03/02/2024 Encounters Encounter Location Date Provider Diagnosis [facility] [address] [place] [phone] 03/02/2024 Rupesh Gee Essential hypertensi on I10 and Pain in right hand M79.641 Assessments Encounter Date Diagnosis (ICD Code) Assessment Notes Treatment Notes Treatment Clinical Notes Section Notes 03/02/2024 Essential hypertension (ICD-10 - I10) 03/02/2024 Pain in right hand (ICD-10 - M79.641) Normal exam today, call with any new symptoms Plan Of Treatment Medication Medication Name Sig Start Date Stop Date Notes Spironolactone 50 MG 1 tablet Orally Once a day amLODIPine Besylate 5 MG 1 tablet Orally Once a day Treatment Notes Assessment Notes Pain in right hand Normal exam today, c all with any new symptoms Next Appt Details Follow Up: 6 Months fasting, Reason: Progress Notes * CHAPIN MILTONDOB:1965 ( 59 yo F)Acc No.[id number]:03/02/2024 Progress Notes Patient: CHAPIN LYN Provider: Eve Gee M.D. :1965 A ge:58 Y S ex:Female Date:03/02/2024 Address:[address] [place] [address] , [facility], [id number] Subjective: * Chief Complaints: * 1 . 6 months. * HPI: C ardiology: 58 year old female presents with c/o Blood Pressure Elevated?Pt here for 6 mo f/u on hypertension, states she is doing well and does not have any concerns.? * ROS: D ERMATOLOGY: no R zohra. [...] Ligation 06/2005, Partial Hysterectomy, Bladder Tuck- [facility] 02/2009, Gum Graft 04/2019, Colonoscopy 2017, Cholecystectomy - [facility] 05/17/2020, EGD, Dr. Piper 01/2021, Colonoscopy 10/2021. * Hospitalization/Major Diagno stic Procedure: E [facility] ER - reaction 04/26/2016. * Family [...] tablet Orally Once a day , Taking DULoxetine HCl 30 MG Capsule Delayed Release Particles 1 cap(s) orally once a day , Taking Spironolactone 50 MG Tablet 1 tablet Orally Once a day , Taking Rosuvastatin Calcium 20 MG Tablet TAKE 1 CAPSULE BY MOUTH EVERY DAY , Discontinued Medrol 4 MG Tablet Therapy Pack as directed orally daily , Medication List reviewed and reconciled with the patient * Allergies: N .K.D.A. Objective: * Vitals: W t:152.4, Temp:98.0, BP:124/80, HR:90, Nurse:jae, Ht: 63, BMI:26.99. * Examination: C ardiology: General Appearance: p leasant, NAD. H eart sounds: R RR, normal S1, S2. L ungs: c lear, no rales or wheezes. E xtremities: no leg edema. W rist / Hand: Wrist/Hand: right. I nspection: n o swelling, redness or ecchymosis. R yazan of motion: n ormal flexion and extension, normal ulnar and radial deviation. P alpation: n o bony tenderness on wrist. 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 Assessment: * Assessment: 1. E ssential hypertension - I10 (Primary) 2 . P ain in right hand - M79.641 Plan: * Treatment: 2. P ain in right hand Notes: Normal exam today, call with any new symptoms * Follow Up: 6 Months fasting * Images: Billing Information: * Visit Code: 22359 Office Visit, Est Pt., Level 3. * Procedure Codes: * Electronic signature of Amelia Gee MD on 12/28/2024 at 03:43 PM EDT Sign off status: Pending * Provider: Eve Gee M.D. Date: 05/02/2023 Generated for Eduar cabral/Allysong/eTransmitting on: 0 12/28/2024 03:43 PM EDT History and Physical Notes * HPI (History of Present Illness) Category Sub-Category Detail Notes Category Not es Cardiology Blood Pressure Elevated Pt here for 6 mo f/u on hypertension, states she is doing well and does not have any concerns Examination Category Sub-Category Detail Notes Category Not es Cardiology Lungs: clear, no rales or wheezes Heart sounds: RRR, normal S1, S2 Extremities: no leg edema General Appearance: pleasant, NAD Wrist / Hand Inspection: no swelling, redness or ecch ymosis Wrist/Hand: right Range of motion: normal flexion and e xtension, normal ulnar and radial deviation Palpation: no bony tenderness o n wrist Strength: normal strength of f lexors and extensors, 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
--- OUTSIDE RECORDS SUMMARY | 2024-08-24 06:15 | XMS_ITS ---
Author Organization [facility] Address [facility] [address] [place] [phone] Care Team Providers Care [id number] Armor Crewman Name Role Phone Rupesh Gee Primary Care Provider [phone] Allergies No Known Allergies Results Component Value Reference Range Notes X ray : heel, left Reviewed date:08/25/2024 10:43:45 AM Interpretation:minimal plantar spur Performing Lab: Notes/Report: minimal plantar spur REASON FOR VISIT can barely put weight on left foot Medications Medication SIG (Take, Route, Frequency, Duration) Notes Start Date End Date Status DULoxetine HCl 30 MG TAKE 1 CAPSULE BY M OUTH EVERY DAY; Duration: 90 Active Pantoprazole Sodium 20 MG 1 tablet Orall y Once a day; Duration: 90 days Active Rosuvastatin Calcium 20 MG TAKE 1 TABLET BY MOUTH EVERY DAY; Duration: 90 Active amLODIPine Besylate 5 MG 1 tablet Orally Once a day; Duration: 90 days Active Spironolactone 50 MG TAKE 1 TABLET BY MO UTH DAILY; Duration: 90 Active Vitamin D 1 CAP(S) ORALLY ONCE DAILY Active Vitamin E 1 CAP(S) ORALLY ONCE A DAY Active Multiple Vitamin - 1 cap(s) orally once a day Active Vitamin B 12 500 MCG 1 tab(s) orally onc e a day; Duration: 30 day(s) Active Vital Signs Blood pressure systolic 130 mm Hg 08/25/19 25 Blood pressure diastolic 80 mm Hg 025 Heart Rate 72 /min 08/24/2024 Height 63 in 08/24/2024 Weight 156.6 lbs 08/24/2024 BMI 27.74 kg/m2 08/24/2024 Encounters Encounter Location Date Provider Diagnosis [facility] [address] [facility] [address] [place] [phone] 08/24/2024 Rupesh Gee Pain of left heel M79.672 Assessments Encounter Date Diagnosis (ICD Code) Assessment Notes Treatment Notes Treatment Clinical Notes Section Notes 08/24/2024 Pain of left heel (ICD-10 - M79.672) Home exercise program provided to patient Ice massage prn Plan Of Treatment Treatment Notes Assessment Notes Pain of left heel Home exercise progra m provided to patient Ice massage prn Next Appt Details Follow Up: as scheduled,and prn, Reason: Progress Notes * CHAPIN MILTONDOB:1965 ( 59 yo F)Acc No.[id number]:08/24/2024 Progress Notes Patient: CHAPIN LYN Provider: Eve Gee M.D. :1965 A ge:59 Y S ex:Female Date:08/24/2024 Address:[address] [place] [address] , [id number] Subjective: * Chief Complaints: * 1 . Can barely put weight on left foot. * HPI: A nkle/Foot: 59 year old female presents with c/o Pain P t complains of lt heel pain for about 2 months. Pt states that pain gets so bad at times she can barely walk. Pt states she has tried to use heating pad and take Ibuprofen but has not had any relief. * ROS: D ERMATOLOGY: no R zohra. [...] Ligation 06/2005, Partial Hysterectomy, Bladder Tuck- [facility] 02/2009, Gum Graft 04/2019, Colonoscopy 2017, Cholecystectomy - [facility] 05/17/2020, EGD, Dr. Piper 01/2021, Colonoscopy 10/2021. * Hospitalization/Major Diagno stic Procedure: E [facility] ER - reaction 04/26/2016. * Family [...] HCl 30 MG Capsule Delayed Release Particles TAKE 1 CAPSULE BY MOUTH EVERY DAY , Taking amLODIPine Besylate 5 MG Tablet 1 tablet Orally Once a day , Taking Spironolactone 50 MG Tablet TAKE 1 TABLET BY MOUTH DAILY , Taking Pantoprazole Sodium 20 MG Tablet Delayed Release 1 tablet Orally Once a day , Taking Rosuvastatin Calcium 20 MG Tablet TAKE 1 TABLET BY MOUTH EVERY DAY , Medication List reviewed and reconciled with the patient * Allergies: N .K.D.A. Objective: * Vitals: W t: 156.6, Temp: 98.0, BP: 130/80, HR: 72, Nurse: jae, Ht: 63, BMI:27.74. * Examination: G eneral Examination: General Appearance: N AD. A nkle / Foot: Ankle: l eft. I nspection: n o swelling or ecchymosis. P alpation: t enderness along the anterior and lateral edge of the calcaneous. ? Assessment: * Assessment: 1. P ain of left heel - M79.672 (Primary) Plan: * Treatment: Notes: Home exercise program provided to patient Ice massage prn?? * Follow Up: a s scheduled,and prn * Images: Billing Information: * Visit Code: 48541 Office Visit, Est Pt., Level 3. * Procedure Codes: * Electronic signature of Amelia Gee MD on 12/28/2024 at 03:43 PM EDT Sign off status: Pending * Provider: Eve Gee M.D. Date: 0 08/24/2024 Generated for Eduar cabral/Cindy/Giovannaitting on: 0 12/28/2024 03:43 PM EDT History and Physical Notes * HPI (History of Present Illness) Category Sub-Category Detail Notes Category Not es Ankle/Foot Pain Pt complains of lt heel pain for about 2 months. Pt states that pain gets so bad at times she can barely walk. Pt states she has tried to use heating pad and take Ibuprofen but has not had any relief Examination Category Sub-Category Detail Notes Category Not es General Examination General Appearance: NAD Ankle / Foot Inspection: no swelling or ecchymosis Palpation: tenderness along the anterior and lateral edge of the calcaneous Ankle: left
--- OUTSIDE RECORDS SUMMARY | 2024-09-08 05:15 | XMS_ITS ---
Author Organization [facility] Address [address] [facility] [address] [place] [id number] Care Team Providers Care Business Performance Manager Name Role Phone Heather Geeian Primary Care Provider [phone] Allergies No Known Allergies Results Component Value Reference Range Notes P-Vitamin B12 Reviewed date:09/13/2024 12:48:53 PM Interpretation:>2000 Performing Lab: Notes/Report: Test performed by [facility] [address] [place] [address] , [address], [place] [address] Gurinder Renae MD, Printing Mechanist CLIA: [id number] Vitamin B12 >2000 232-1245 pg/mL P-Comprehensive Metabolic Pa deepika (CMP) Reviewed date:09/13/2024 12:48:53 PM Interpretation:Normal Performing Lab: Notes/Report: Test performed by [facility] [address] [place] [address] , [address], [place] [address] Gurinder Renae MD, Printing Mechanist CLIA: [id number] Sodium 140 135-145 mmol/L Potassium 4.5 3.5-5.3 [...] Interpretation:Normal Performing Lab: Notes/Report: Test performed by [facility], [address] , [place] [address] Gurinder Renae MD, Printing Mechanist CLIA: [id number] Cholesterol 141 <200 mg/dL Triglycerides 65 <150 [...] Interpretation:Normal Performing Lab: Notes/Report: Test performed by [facility] [address] [place] [address] , [address], [place] [address] Gurinder Renae MD, Printing Mechanist CLIA: [id number] TSH reflex to FT4 3.02 0.43-5.25 mU/L P-Microalbumin/Creatinine, R andom Urine Sample Reviewed date:09/13/2024 12:48:53 PM Interpretation:Normal Performing Lab: Notes/Report: Test performed by [facility] [address] [place] [address] , [address], [place] [address] Gurinder Renae MD, Printing Mechanist CLIA: [id number] Albumin/Creatinine Ratio, Urine <16.85 0-30 ug/m g Microalbumin, Urine, Random <0.3 Creatinine, Urine 17.8 P-Vitamin D 25-Hydroxy Reviewed date:09/13/2024 12:48:53 PM Interpretation:Normal Performing Lab: Notes/Report: Test performed by [facility] [address] [place] [address] , [address], [place] [address] Gurinder Renae MD, Printing Mechanist CLIA: [id number] Vitamin D 25-Hydroxy 67.1 30.0-100.0 ng/mL Interpretation of Vitamin D 25 [place]: < 20 ng/mL - Deficiency 20 - 29 ng/mL - Insufficiency 30 - 100 ng/mL - Sufficiency > 100 ng/mL - Super-therapeutic- toxicity may occur above this level. Clinical correlation required. Reason For Referral Diagnosis 1 Pain of left heel (M 79.672) Diagnosis 2 Calcaneal spur, left (M77.32) [facility] Referring Provider First Name Rupesh Referring Provider Last Name Marlen Referring Provider Speciality Family [facility] Referred Provider Rina Olivera Referred Provider Specialty Podiatry General Notes Cathy Salgado 2024 10:01:25 AM > faxed to [facility] Podiatry, Cathy Salgado 09/08/2024 03:37:13 PM > [...] 09/08/2024 Encounters Encounter Location Date [facility] [address] [place] [id number] 09/08/2024 Rupesh Gee Essential hypertensi on I10 [...] * CHAPIN MILTONDOB:1965 ( 59 yo F)Acc No.[id number]:09/08/2024 Progress Notes Patient: CHAPIN LYN Provider: Eve Gee M.D. :1965 A ge:59 Y S ex:Female Date:09/08/2024 Address:[address], [place], [id number] Subjective: * Chief Complaints: * 1 . [...] ubal Ligation 06/2005, Partial Hysterectomy, [facility], Gum Graft 04/2019, Colonoscopy 2017, Cholecystectomy - [facility] 05/17/2020, EGD, Dr. Piper 01/2021, Colonoscopy 10/2021. * Hospitalization/Major Diagno stic Procedure: E [facility] ER - reaction 04/26/2016. * Family History: [...] left - M77.32 ? 9 . B OH 27.0-27.9,adult - Z68.27 Plan: * Treatment: Value [...] 25-Hydroxy 67.1 30.0-100.0 - ng/mL * Sharonda uMrillo 09/13/2024 12:4 8:48 PM > See phone [...] * Images: Billing Information: * Visit Code: 31170 Office Visit, Est Pt., Level 4. * Procedure Codes: 3074F SYST BP LT 130 MM HG. 3079F DIAST BP 80-89 MM HG. * Electronic signature of Amelia Gee MD on 12/28/2024 at 03:43 PM EDT Sign off status: Pending * Provider: Eve Gee M.D. Date: 0 09/08/2024 Generated for Eduar cabral/Cindy/Sylwia on: 0 12/28/2024 03:43 PM EDT History [...]
--- OUTSIDE RECORDS SUMMARY | 2024-12-28 15:43 | XMS_ITS | Clinical Summary ---
[facility] Address [address] [place] [address] Care Team Providers Care Diamond Setter Apprentice Name Role Phone Rupesh Gee MD Primary Care Provider + [phone] Family History Medical History Relation Name Comments Breast cancer Neg Hx Ovarian cancer Neg Hx Social History Tobacco Use Types Packs/Day Years Used Date Smoking Tobacco: Never Assessed Abuse Screen Answer Date Recorded Unsafe at Home or Work/School Not on file Feels Threatened by Someone? Not on file 12/2022 Does Anyone Keep You from Co ntacting Others or Doint Things Outside the Home? Not on file 02/01/2023 Physical Sign of Abuse Present Not on file 1 Housing Stability Answer Date Recorded Current Living Arrangements Not on file 12/2022 Potentially Unsafe Housing Conditions Not on dasha e 02/01/2023 Family and Community Support Answer Philip e Recorded Help with Day-to-Day Activities Not on file 02/01/2023 Lonely or Isolated Not on file 02/01/2023 Employment Answer Date Recorded Do you want help finding or keeping work or a maria del rosario b? Not on file 02/01/2023 Disabilities Answer Date Recorded Concentrating, Remembering, or Making Decisions Difficulty Not on file 02/01/2023 Doing Errands Independently Difficulty Not on fi le 02/01/2023 Education Answer Date Recorded Help with school or training? Not on file Preferred Language Not on file 02/01/2023 Comments No Sex and Gender Information Value Date Recorded Sex Assigned at Not on file Legal Sex Female 10:40 AM EDT Gender Identity Not on file Sexual Orientation Not on file Plan of Treatment Health Maintenance Due Date Last Done Comments ANNUAL PHYSICAL 1965 Annual Gynecologic Pelvic an d Breast Exam 1965 HEPATITIS C SCREENING 1963 TDAP/TD VACCINES (1 - Tdap) 1982 COLOGUARD 2008 COLON CANCER SCREENING 5 YEA R SIGMOIDOSCOPY 2008 COLONOSCOPY [address] CANCER SCREENING 2008 CT COLONOGRAPHY 2008 FECAL OCCULT BLOOD TEST 2008 FIT Testing (1 year) 2008 Pneumococcal Vaccine 50+ (1 of 1 - PCV) 2013 ZOSTER VACCINE (1 of 2) 2013 COVID-19 Vaccine (4 - 2024-2 6 season) 2024 05/08/2021, 07/24/2020, 06/26/2020 INFLUENZA VACCINE 01/24/2025 04/02/2020, 01/13/2019 MAMMOGRAM 11/29/2025 11/30/2023, 06/0 08/2022, 08/12/2021, Additional history exists Procedures Procedure Name Priority Date/Time Associated Diagnosis Comments MAMMO SCREENING DIGITAL TOMOSYNTHESIS BILATERAL W CAD Routine 11/30/2023 11:17 AM EDT Screening mammogram for breast cancer from Last 3 Months or Most Recently Relevant to Health Maintenance Results * Mammo Screening Digital Tomosynthesis Bilateral With CAD (11/30/2023 11:17 AM EDT) Anatomical Region Laterality Modality Breast N/A Mammography 12/03/2023 6:00 PM EDT Impressions 12/03/2023 6:00 PM EDT No findings suspicious for malignancy. ACR BI-RADS CATEGORY: 1, NEGATIVE RECOMMENDATION: Yearly mammogram, yearly clinical breast exam, and encourage self breast awareness. CAD was used. The standard false negative rate of mammography is between 10% and 25%. Complex patterns or increased breast density will markedly elevate the false negative rate of mammography. A letter, in lay terminology, with the results of this exam will be mailed to the patient. At our facility, a triangular marker is positioned over a palpable area of concern indicated by the patient. A [place] marker is placed over a visible skin lesion. A linear marker indicates a scar. If there is a palpable area of concern, biopsy should be considered regardless of imaging findings. This report was finalized on 12/03/2023 6:[address] Urmila Banuelos MD. Narrative 12/03/2023 6:00 PM EDT DIGITAL SCREENING MAMMOGRAM WITH TOMOSYNTHESIS HISTORY: Routine screening. IMAGE COMPARISON: 09/28/2022, 08/12/2021, 03/12/2020. TECHNIQUE: Low dose full field digital breast tomosynthesis imaging was performed with 2D and 3D acquisitions consisting of bilateral CC and MLO views. FINDINGS: There are scattered areas of fibroglandular density. The fibroglandular pattern appears stable. There is no mass, worrisome microcalcifications, or architectural distortion to suggest development of malignancy. Rupesh Gee MD IMG MAMMOGRAPHY ORDERABLES F inal Result from Last 3 Months or Most Recently Relevant to Health Maintenance Insurance [address] [place] [address] [facility] PPO Care Teams Diamond Setter Apprentice Relationship Specialty Start Date End Date Rupesh Gee MD [address] [facility] [address] [place], [place] [id number] PCP - General 01/29/15
--- OUTSIDE RECORDS SUMMARY | 2024-12-28 15:44 | XMS_ITS | Patient Health Record ---
Author Organization [facility] Address [address] [facility] [address] [place] [id number] Care Team Providers Care Retail Pricing Coordinator Name Role Phone Rupesh Gee Primary Care Provider Allergies No Known Allergies Results Component Value Reference Range Notes X ray : heel, left Reviewed date:08/25/2024 10:43:45 AM Interpretation:minimal plantar spur Performing Lab: Notes/Report: minimal plantar spur P-Vitamin B12 Reviewed date:09/13/2024 12:48:53 PM Interpretation:>2000 Performing Lab: Notes/Report: Test performed by [facility] [address] [place] [address] , [address], [place] [address] Gurinder Renae MD, Speaking Unit Assembler CLIA: [id number] Vitamin B12 >2000 232-1245 pg/mL P-Comprehensive Metabolic Pa deepika (CMP) Reviewed date:09/13/2024 12:48:53 PM Interpretation:Normal Performing Lab: Notes/Report: Test performed by [facility] [address] [place] [address] , [address], [place] [address] Gurinder Renae MD, Speaking Unit Assembler CLIA: [id number] Sodium 140 135-145 mmol/L Potassium 4.5 3.5-5.3 [...] Interpretation:Normal Performing Lab: Notes/Report: Test performed by [facility], [address] , [address], [place] [address] Gurinder Renae MD, Speaking Unit Assembler CLIA: [id number] Cholesterol 141 <200 mg/dL Triglycerides 65 <150 [...] Interpretation:Normal Performing Lab: Notes/Report: Test performed by [facility] [address] [place] [address] , [address], [place] [address] Gurinder Renae MD, Speaking Unit Assembler CLIA: [id number] TSH reflex to FT4 3.02 0.43-5.25 mU/L P-Microalbumin/Creatinine, R andom Urine Sample Reviewed date:09/13/2024 12:48:53 PM Interpretation:Normal Performing Lab: Notes/Report: Test performed by [facility] [address] [place] [address] , [address], [place] [address] Gurinder Renae MD, Speaking Unit Assembler CLIA: [id number] Albumin/Creatinine Ratio, Urine <16.85 0-30 ug/m g Microalbumin, Urine, Random <0.3 Creatinine, Urine 17.8 P-Vitamin D 25-Hydroxy Reviewed date:09/13/2024 12:48:53 PM Interpretation:Normal Performing Lab: Notes/Report: Test performed by [facility] [address] [place] [address] , [address], [place] [address] Gurinder Renae MD, Speaking Unit Assembler CLIA: [id number] Vitamin D 25-Hydroxy 67.1 30.0-100.0 ng/mL Interpretation of Vitamin D 25 [place]: < 20 ng/mL - Deficiency 20 - 29 ng/mL - Insufficiency 30 - 100 ng/mL - Sufficiency > 100 ng/mL - Super-therapeutic- toxicity may occur above this level. Clinical correlation required. Medications Medication SIG (Take, Route, Frequency, Duration) Notes Start Date End Date Status Multiple Vitamin - 1 cap(s) orally once a day Active Vitamin B 12 500 MCG 1 tab(s) orally once a day; Duration: 30 day(s) Active Vitamin E 1 CAP(S) ORALLY ONCE A DAY Active Pantoprazole Sodium 20 MG 1 tablet Orally Once a day; Duration: 90 days Please hold until patient requests refills Active Vitamin D 1 CAP(S) ORALLY ONCE DAILY Active amLODIPine Besylate 5 MG 1 tablet Orally Once a day; Duration: 90 days Active Spironolactone 50 MG 1 tablet Orally Once a day; Duration: 90 days Please hold until patient requests refills Active Rosuvastatin Calcium 20 MG 1 tablet Orally once daily; Duration: 90 days Please hold until patient requests refills Active DULoxetine HCl 30 MG 1 capsule Orally once daily; Duration: 90 days Active Immunizations Vaccine Route Administration Date Status Comme nts Tetanus Tdap-Adacel (over 7yrs) IM Intramuscular 04/14/2014 Administered Fluzone Quad (6months&older) IM Intramuscular 01/13/2019 Administered Fluzone Quad (6months&older) IM Intramuscular 04/02/2020 Administered Fluzone Quad (6months&older) IM Intramuscular 03/24/2021 Administered COVID 19 Moderna Unknown 06/26/2020 Administered COVID 19 Moderna Unknown 07/24/2020 Administered COVID 19 Moderna Unknown 05/08/2021 Administered Problems Problem Type SNOMED Code ICD Code Onset Dates Problem Status W/U Status Risk Notes Problem Overactive bladder (276698249) Overactive bladder (N32.81) Active confirmed Problem Vitamin D deficiency (21847236) Vitamin D deficiency (E55.9) Active confirmed Problem Vitamin B12 deficiency (647675235) Vitamin B12 deficiency (E53.8) Active confirmed Problem Essential hypertension (78378168) Essential hypertension (I10) Active confirmed Problem Sciatic nerve lesion (573671910) Piriformis syndrome of left side (G57.02) Active confirmed Problem Mixed anxiety and depressive disorder (424419422) Depression with anxiety (F41.8) Active confirmed Problem Mixed hyperlipidemia (567948367) Mixed hyperlipidemia (E78.2) Active confirmed Problem Urge incontinence of urine (35475529) Urge incontinence (N39.41) Active confirmed Problem Constipation (90562243) Constipation, unspecified constipation type (K59.00) Active confirmed Problem Sciatica (22293653) Acute right- sided low back pain with right-sided sciatica (M54.41) Active confirmed Problem Irritable bowel syndrome characterized by constipation (153647709) Irritable bowel syndrome with constipation (K58.1) Active confirmed Problem Bladder spasm (956249898) Bladder spasm (N32.89) Active confirmed Problem Gastroesophageal reflux disease (033561263) Gastroesophageal reflux disease, unspecified whether esophagitis present (K21.9) Active confirmed Vital Signs Heart Rate 81 /min 09/08/2024 Blood pressure diastolic 80 mm Hg 09/08/2024 Height 63 in 09/08/2024 Blood pressure systolic 120 mm Hg 09/08/2024 Weight 154.8 lbs 09/08/2024 BMI 27.42 kg/m2 09/08/2024 Encounters Encounter Location Date Provider Diagnosis [facility] [address] [facility] [address], [place] [id number] 03/02/2024 Rupesh [place] Essential hypertensi on I10 and Pain in right hand M79.641 [facility] [address] [facility] [address], [place] [id number] 08/24/2024 Rupesh [place] Pain of left heel M7 9.672 [facility] [address] [facility] [address], [place] [id number] 09/08/2024 Rupesh [place] Essential hypertensi on I10 ; Mixed hyperlipidemia E78.2 ; Gastroesophageal reflux disease, unspecified whether esophagitis present K21.9 ; Vitamin B12 deficiency E53.8 ; Vitamin D deficiency E55.9 ; Depression with anxiety F41.8 ; Intractable left heel pain M79.672 ; Calcaneal spur, left M77.32 and BMI 27.0-27.9,adult Z68.27 [facility] [address] [place], [place] [id number] 08/25/2024 Rupesh [facility] [address] [place], [place] [id number] 09/13/2024 Rupesh [facility] [address] [place], [place] [id number] 11/30/2024 Rupesh [place] Essential hypertensi on I10 Assessments Encounter Date Diagnosis (ICD Code) Assessment Notes Treatment Notes Treatment Clinical Notes Section Notes 08/24/2024 Pain of left heel (ICD-10 - M79.672) Home exercise program provided to patient Ice massage prn 09/08/2024 Essential hypertension (ICD-10 - I10) 09/08/2024 Mixed hyperlipidemia (ICD-10 - E78.2) 11/30/2024 Essential hypertension (ICD-10 - I10) 03/02/2024 Essential hypertension (ICD-10 - I10) 03/02/2024 Pain in right hand (ICD-10 - M79.641) Normal exam today, call with any new symptoms 09/08/2024 Gastroesophageal reflux disease, unspecified whether esophagitis present (ICD-10 - K21.9) 09/08/2024 Vitamin B12 deficiency (ICD-10 - E53.8) 09/08/2024 Vitamin D deficiency (ICD-10 - E55.9) 09/08/2024 Depression with anxiety (ICD-10 - F41.8) 09/08/2024 Intractable left heel pain (ICD-10 - M79.672) 09/08/2024 Calcaneal spur, left (ICD-10 - M77.32) 09/08/2024 BMI 27.0-27.9,adult (ICD-10 - Z68.27) Plan Of Treatment No Information Insurance Providers Payer Name Payer Address Payer Phone Subscriber Number Group Number Insured Name Patient Relationship to Insured Coverage Start Date Coverage End Date NIDHI KWOK [employer] [address] [place] [address] [phone] [id number] CHAPIN [place] Self - patient is the insured Medications Administered Medication Instructions Date of Administration Dosage Notes Dexamethasone 09/16/2011 1 mL Dexamethasone 08/14/2014 1 mL Dexamethasone 04/28/2016 1 mL Dexamethasone 12/21/2023 1 mL Medical (General) History 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 Piper 01/2021 Colonoscopy 10/2021 Hospitalization History Reason Date(Month/Year) [facility] - reacti on 04/26/2016
--- NOTE | 2024-12-28 16:00 | MM_ITS ---
PROCEDURE INFORMATION: Exam: MG Bilateral Screening 3D Mammography Exam date and time: 12/28/2024 3:43 PM Age: 59 years old Clinical indication: Screening examination TECHNIQUE: Imaging protocol: Bilateral Screening tomosynthesis and 2D mammography including computer-aided detection (CAD) when performed. COMPARISON: 1. MG MM DIG MAMM DX UNILAT LT CAD 09/15/2024 3:53 PM 2. MG MAMMO SCREENING DIGITAL TOMOSYNTHESIS BILATERAL W CAD 09/28/2022 8:49 AM FINDINGS: MAMMOGRAPHY: Breast composition: There are scattered areas of fibroglandular density. Mass: None. Architectural distortion: None. Calcifications: No suspicious calcifications. Asymmetric density: None. Skin thickening: None. Axillary adenopathy: None. IMPRESSION: No mammographic evidence of malignancy. Annual screening is recommended unless otherwise clinically indicated. ASSESSMENT: BI-RADS Category 1: Negative.
== END 2024-12-28 23:59 | disposition home or self-care (01) ==
LOC: RAD 15:41
PROVIDERS: PCP Family Medicine; Visit Provider Obstetrics & Gynecology
DX: Z12.31 Encounter for screening mammogram for malignant neoplasm of breast (principal); R92.323 Mammographic fibroglandular density, bilateral breasts
CPT/HCPCS: 77063; 77067

== ENCOUNTER 2025-01-27 09:01 | Outpatient (CLI) | payer BC, SELFPAY ==
--- OUTSIDE RECORDS SUMMARY | 2023-11-23 05:00 | XMS_ITS ---
Author Organization [facility] Address [address] [facility] [address] [place] [id number] Care Team Providers Care Equipment Planner Name Role Phone Rupesh Gee Primary Care Provider [phone] Allergies No Known Allergies Results Component Value Reference Range Notes Glucose (In-House) Reviewed date:11/24/2023 09:25:07 AM Interpretation:115 satisfactory Performing Lab: Notes/Report: 115 satisfactory blood glucose 115 74 - 106 mg/dL Glycohemoglobin A1c (in hous e) Reviewed date:11/24/2023 09:25:07 AM Interpretation:5.4% Normal Performing Lab: Notes/Report: 5.4% Normal glycohemoglobin 5.4% 5 - 6.5 % P-Hepatic Function Panel Reviewed date:11/24/2023 09:25:06 AM Interpretation:Normal Performing Lab: Notes/Report: CLIA: [id number] Gurinder Renae MD, Wet Char Conveyor Tender [facility] [place] [facility] , [address], [place] [address] Test performed by [facility], [facility] Protein 7.1 6.0-8.3 g/dL Albumin 4.7 3.5-5.3 [...] 11/23/2023 Encounters Encounter Location Date Provider Diagnosis [facility] [address] [facility] [address] [place], [place] [id number] 11/23/2023 Rupesh Gee Essential hypertensi on I10 [...] * EL MILTON:1965 ( 59 yo F)Acc No.[id number]:11/23/2023 Progress Notes Patient: CHAPIN LYN Provider: Eve Gee M.D. :1965 A ge:58 Y S ex:Female Date:11/23/2023 Address:[facility] [address] , [place], [id number] Subjective: * Chief Complaints: * 1 . [...] ubal Ligation 06/2005, [facility], Gum [facility] 04/2019, Colonoscopy 2017, Cholecystectomy - [facility] 05/17/2020, EGD, Dr. Piper 01/2021, Colonoscopy 10/2021. * Hospitalization/Major Diagno stic Procedure: E [facility] ER - reaction 04/26/2016. * Family [...] * Procedure Codes: 8 2950 GLUCOSE TEST, 37996 GLYCATED HEMOGLOBIN TEST, Modifiers: QW * Follow Up: 6 Months * Images: Billing Information: * Visit Code: 78108 Office Visit, Est Pt., Level 4. * Procedure Codes: 00136 GLUCOSE TEST. 38711 GLYCATED HEMOGLOBIN TEST. Modifiers: QW * Electronic signature of Amelia Gee MD on 01/29/2025 at 09:09 AM EDT Sign off status: Pending * Provider: Eve Gee M.D. Date: 0 11/23/2023 Generated for Eduar cabral/Cindy/Rickeysmitting on: 1 09:09 AM EDT History and Physical Notes * HPI [...]
--- OUTSIDE RECORDS SUMMARY | 2023-12-21 09:15 | XMS_ITS ---
Author Organization [facility] Address [address] [facility] [address] [place] [id number] Care Team Providers Care Cushion Spring Assembler Name Role Phone Rupesh Gee Primary Care Provider Katina Plummer Unavailable [phone] Allergies No Known Allergies REASON FOR VISIT reaction to bites, wanting a sterroid shot Medications Medication SIG (Take, Route, Frequency, Duration) Notes Start Date End Date Status Spironolactone 50 MG 1 tablet Orally Onc e a day; Duration: 90 days Active DULoxetine HCl 30 MG 1 cap(s) orally onc e a day; Duration: 90 days Active Medrol 4 MG as directed orally d aily; Duration: 6 days 12/21/2023 Active Vitamin B 12 500 MCG 1 tab(s) orally onc e a day; Duration: 30 day(s) Active Multiple Vitamin - 1 cap(s) orally once a day Active Rosuvastatin Calcium 20 MG TAKE 1 CAPSUL E BY MOUTH EVERY DAY Active amLODIPine Besylate 5 MG 1 tablet Orally Once a day Active Pantoprazole Sodium 20 MG 1 tablet Orall y Once a day; Duration: 90 days Active Vitamin D 1 CAP(S) ORALLY ONCE DAILY Active Vitamin E 1 CAP(S) ORALLY ONCE A DAY Active Vital Signs Blood pressure systolic 122 mm Hg 12/21/19 24 Blood pressure diastolic 80 mm Hg 024 Heart Rate 85 /min 12/21/2023 Height 63 in 12/21/2023 Weight 154.6 lbs 12/21/2023 BMI 27.38 kg/m2 12/21/2023 Encounters Encounter Location Date Provider Diagnosis [place] [address] [facility] [address] [place] [id number] 12/21/2023 Katina Plummer Bug bites W57.XXXA and Allergic reaction to insect sting, accidental or unintentional, initial encounter T63.481A Assessments Encounter Date Diagnosis (ICD Code) Assessment Notes Treatment Notes Treatment Clinical Notes Section Notes 12/21/2023 Bug bites (ICD-10 - W57.XXXA) 12/21/2023 Allergic reaction to insect sting, accidental or unintentional, initial encounter (ICD-10 - T63.481A) ice to itchy areas; continue with OTC antihistamines ; meds with food Plan Of Treatment Medication Medication Name Sig Start Date Stop Date Notes Medrol 4 MG as directed orally daily; Duration: 6 days Treatment Notes Assessment Notes Allergic reaction to insect sting, accidental or unintentional, initial encounter ice to itchy areas; continue with OTC antihistamines; meds with food Next Appt Details Follow Up: prn, Reason: Medications Administered Medication Instructions Date of Administration Dosage Notes Dexamethasone 12/21/2023 1 mL Progress Notes * CHAPIN MILTONDOB:1965 ( 59 yo F)Acc No.[id number]:12/21/2023 Progress Notes Patient: CHAPIN LYN Provider: JUNI Orozco :1965 A ge:58 Y S ex:Female Date:12/21/2023 Address:[address], [place], [id number] Pcp:Rupesh Gee Subjective: * Chief Complaints: * 1 . Reaction to bites, wanting a sterroid shot. * HPI: D ermatology: Pt is here today due to having multiple insect bites. Pt sts she is allergic to mosquitos, and she has about 10 bites on her legs that are now welped up and very itchy. * ROS: D ERMATOLOGY: no R zohra. n o H vladimir. G ASTROENTEROLOGY: no N ausea. n o V omiting. U ROLOGY: no D ifficulty urinating. n o B lood in urine. * Medical History: [facility] - Dr. Pelayo, Hypertension, Irritable Bowel Syndrome, Overactive Bladder, Esophageal Reflux, Vitamin D Deficiency, Vitamin B 12 Deficiency. * Surgical History: T ubal Ligation 06/2005, Partial Hysterectomy, Bladder Tuck- [facility] 02/2009, Gum Graft 04/2019, Colonoscopy 2017, Cholecystectomy - [facility] 05/17/2020, EGD, Dr. Piper 01/2021, Colonoscopy 10/2021. * Hospitalization/Major Diagno stic Procedure: E [facility] ER - reaction 04/26/2016. * Family History: [...] 1 CAP(S) ORALLY ONCE DAILY , Taking Pantoprazole Sodium 20 MG Tablet Delayed Release 1 tablet Orally Once a day , Taking amLODIPine Besylate 5 MG Tablet 1 tablet Orally Once a day , Taking Rosuvastatin Calcium 20 MG Tablet TAKE 1 CAPSULE BY MOUTH EVERY DAY , Taking DULoxetine HCl 30 MG Capsule Delayed Release Particles 1 cap(s) orally once a day , Taking Spironolactone 50 MG Tablet 1 tablet Orally Once a day , Medication List reviewed and reconciled with the patient * Allergies: N .K.D.A. Objective: * Vitals: W t:154.6, Temp:98.4, BP:122/80, HR:85, Nurse:JOANNE, Ht: 63, BMI:27.38. * Examination: G eneral Examination: General Appearance: NAD, appears healthy, alert, pleasant; scratching her legs. H eart: RRR. L ungs: CTAB A&P. N eurologic Exam:? alert and oriented. S kin: scattered whelps on bilateral lower legs. ? Assessment: * Assessment: 1. B ug bites - W57.XXXA (Primary) 2 . A llergic reaction to insect sting, accidental or unintentional, initial encounter - T63.481A S pecify :mosquito Plan: * Treatment: * Therapeutic Injections: Dexamethasone : 1 mL (Route: Intramuscular) given by Livia Dahl on right gluteus (Bug bites, Allergic reaction to insect sting, accidental or unintentional, initial encounter) * Procedure Codes: J 1100 Dexamethasone, 31390 ADMINISTRATION OF INJECTION * Follow Up: p rn * Images: Billing Information: * Visit Code: 33701 Office Visit, Est Pt., Level 3. * Procedure Codes: J1100 Dexamethasone. 82649 ADMINISTRATION OF INJECTION. * Electronic signature of Lesly Plummer APRN on 01/29/2025 at 09:09 AM EDT Sign off status: Pending * Provider: JUNI Orozco Date: 0 12/21/2023 Generated for Eduar Huerta on: 1 09:09 AM EDT History and Physical Notes * Examination Category Sub-Category Detail Notes Category Not es General Examination Heart: RRR Lungs: CTAB A&P General Appearance: NAD, appears healthy , alert, pleasant; scratching her legs Skin: scattered whelps on bilateral lower legs Neurologic Exam: alert and oriented
--- OUTSIDE RECORDS SUMMARY | 2024-03-02 05:00 | XMS_ITS ---
Author Organization [place] Address 1210 [facility] [address] [place] [phone] Care Team Providers Care Packing Shed Supervisor Name Role Phone Rupesh Gee Primary Care Provider Allergies No Known Allergies REASON FOR VISIT [...] Encounter Location Date Provider Diagnosis [facility] [address] [place] [phone] 03/02/2024 Rupesh Gee Essential hypertensi on I10 [...] * CHAPIN MILTONDOB:1965 ( 59 yo F)Acc No.[id number]:03/02/2024 Progress Notes Patient: CHAPIN YLN Provider: Eve Gee M.D. :1965 A ge:58 Y S ex:Female Date:03/02/2024 Address:[address] [place] [address] , [facility], [id number] Subjective: * Chief Complaints: * 1 . [...] Ligation 06/2005, Partial Hysterectomy, Bladder Tuck- [facility] 02/2009, Gum Graft 04/2019, Colonoscopy 2017, Cholecystectomy - [facility] 05/17/2020, EGD, Dr. Piper 01/2021, Colonoscopy 10/2021. * Hospitalization/Major Diagno stic Procedure: E [facility] ER - reaction 04/26/2016. 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 Assessment: * Assessment: 1. E ssential hypertension - I10 (Primary) 2 . P ain in right hand - M79.641 Plan: * Treatment: 2. P ain in right hand Notes: Normal exam today, call with any new symptoms * Follow Up: 6 Months fasting * Images: Billing Information: * Visit Code: 05055 Office Visit, Est Pt., Level 3. * Procedure Codes: * Electronic signature of Amelia Gee MD on 01/29/2025 at 09:09 AM EDT Sign off status: Pending * Provider: Eve Gee M.D. 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
--- OUTSIDE RECORDS SUMMARY | 2024-08-24 06:15 | XMS_ITS ---
Author Organization [facility] Address [facility] [address] [place] [phone] Care Team Providers Care Spinning Mule Tender Name Role Phone Rupesh Gee Primary Care [...] 08/24/2024 Encounters Encounter Location Date Provider Diagnosis [facility] [address] [facility] [address] [place] [phone] 08/24/2024 Rupesh Gee Pain of left heel [...] * CHAPIN MILTONDOB:1965 ( 59 yo F)Acc No.[id number]:08/24/2024 Progress Notes Patient: CHAPIN LYN Provider: Eve Gee M.D. :1965 A ge:59 Y S ex:Female Date:08/24/2024 Address:[address] [place] [address] , [id number] Subjective: * Chief Complaints: * 1 . [...] Ligation 06/2005, Partial Hysterectomy, Bladder Tuck- [facility] 02/2009, Gum Graft 04/2019, Colonoscopy 2017, Cholecystectomy - [facility] 05/17/2020, EGD, Dr. Piper 01/2021, Colonoscopy 10/2021. * Hospitalization/Major Diagno stic Procedure: E [facility] ER - reaction 04/26/2016. * Family [...] * Images: Billing Information: * Visit Code: 06986 Office Visit, Est Pt., Level 3. * Procedure Codes: * Electronic signature of Amelia Gee MD on 01/29/2025 at 09:09 AM EDT Sign off status: Pending * Provider: Eve Gee M.D. Date: 08/24/2024 Generated for Eduar cabral/Cindy/Giovannaitting on: 1 09:09 AM EDT History and [...]
--- OUTSIDE RECORDS SUMMARY | 2024-09-08 05:15 | XMS_ITS ---
Author Organization [facility] Address [address] [facility] [address] [place] [id number] Care Team Providers Care Exhaust Worker Name Role Phone Heather Geeian Primary Care Provider Allergies No Known Allergies Results Component Value Reference Range Notes P-Vitamin B12 Reviewed date:09/13/2024 12:48:53 PM Interpretation:>2000 Performing Lab: Notes/Report: CLIA: [id number] Gurinder Renae MD, Client Experience Specialist [address] [place] [address] , [address], [place] [address] Test performed by [facility] Vitamin B12 >2000 232-1245 pg/mL P-Comprehensive Metabolic Pa deepika (CMP) Reviewed date:09/13/2024 12:48:53 PM Interpretation:Normal Performing Lab: Notes/Report: Test performed by [facility] [address] [place] [address] , [address], [place] [address] Gurinder Renae MD, Client Experience Specialist CLIA: [id number] Sodium 140 135-145 mmol/L Potassium 4.5 3.5-5.3 mmol/L Chloride 101 97-108 mmol/L CO2 26 22-32 mmol/L Glucose 97 65-99 mg/dL BUN 15 8-23 mg/dL Creatinine 0.64 0.50-1.00 mg/dL Calcium 9.5 8.6-10.4 mg/dL eGFR by Creatinine 100 >59 mL/min/1.73m2 Protein 7.1 6.0-8.3 g/dL Albumin 4.8 3.5-5.3 g/dL Alkaline Phosphatase 80 35-121 IU/L ALT (SGPT) 46 <5-47 IU/L AST (SGOT) 30 <5-40 IU/L Bilirubin, Total 0.4 <0.2-1.2 mg/dL A/G Ratio 2.1 1.1-2.5 P-Lipid Panel Reviewed date:09/13/2024 12:48:53 PM Interpretation:Normal Performing Lab: Notes/Report: Test performed by [facility], [address] , [place] [address] Gurinder Renae MD, Client Experience Specialist CLIA: [id number] Cholesterol 141 <200 mg/dL Triglycerides 65 <150 mg/dL HDL Cholesterol 68 >39 mg/dL Cholesterol / HDL Ratio 2.07 0.00-4.44 Ratio Non-HDL Cholesterol 73 <130 mg/dL LDL Cholesterol (Calculation) 60 <130 mg/dL LDL Cholesterol Levels* Less than 100 mg/dL Optimal 100 to 129 mg/dL Near Optimal/ Above Optimal 130 to 159 mg/dL Borderline High 160 to 189 mg/dL High 190 mg/dL and above Very High * Categories as recommended by the 2004 ATPIII guidelines LDL/HDL Ratio 0.9 <3.3 Ratio LDL Cholesterol Patient History Test Date: 05/25/2023 LDL Results: 128 Units: mg/dL % Change: - Test Date: 08/26/2023 LDL Results: 54 Units: mg/dL % Change: -57% Test Date: 09/08/2024 LDL Results: 60 Units: mg/dL % Change: +11% P-TSH reflex to FT4 Reviewed date:09/13/2024 12:48:53 PM Interpretation:Normal Performing Lab: Notes/Report: Test performed by [facility] [address] [place] [address] , [address], [place] [address] Gurinder Renae MD, Client Experience Specialist CLIA: [id number] TSH reflex to FT4 3.02 0.43-5.25 mU/L P-Microalbumin/Creatinine, R andom Urine Sample Reviewed date:09/13/2024 12:48:53 PM Interpretation:Normal Performing Lab: Notes/Report: Test performed by [facility] [address] [place] [address] , [address], [place] [address] Gurinder Renae MD, Client Experience Specialist CLIA: [id number] Albumin/Creatinine Ratio, Urine <16.85 0-30 ug/m g Microalbumin, Urine, Random <0.3 Creatinine, Urine 17.8 P-Vitamin D 25-Hydroxy Reviewed date:09/13/2024 12:48:53 PM Interpretation:Normal Performing Lab: Notes/Report: Test performed by [facility] [address] [place] [address] , [address], [place] [address] Gurinder Renae MD, Client Experience Specialist CLIA: [id number] Vitamin D 25-Hydroxy 67.1 30.0-100.0 ng/mL Interpretation of Vitamin D 25 OH: < 20 ng/mL - Deficiency 20 - 29 ng/mL - Insufficiency 30 - 100 ng/mL - Sufficiency > 100 ng/mL - Super-therapeutic- toxicity may occur above this level. Clinical correlation required. Reason For Referral Diagnosis 1 Pain of left heel (M 79.672) Diagnosis 2 Calcaneal spur, left (M77.32) [facility] Referring Provider First Name Rupesh Referring Provider Last Name Marlen Referring Provider Speciality Family [facility] Referred Provider Rina Olivera Referred Provider Specialty Podiatry General Notes Cathy Salgado 2024 10:01:25 AM > faxed to [facility] Podiatry, Cathy Salgado 09/08/2024 03:37:13 PM > 10/16/2024 at 09:00am Referral Priority Routine REASON FOR VISIT 6 months Medications Medication SIG (Take, Route, Frequency, Duration) Notes Start Date End Date Status Multiple Vitamin - 1 cap(s) orally once a day Active Vitamin B 12 500 MCG 1 tab(s) orally once a day; Duration: 30 day(s) Active amLODIPine Besylate 5 MG 1 tablet Orally Once a day; Duration: 90 days Please hold until patient requests refills Active Spironolactone 50 MG 1 tablet Orally Once a day; Duration: 90 days Please hold until patient requests refills Active Rosuvastatin Calcium 20 MG 1 tablet Orally once daily; Duration: 90 days Please hold until patient requests refills Active Vitamin E 1 CAP(S) ORALLY ONCE A DAY Active DULoxetine HCl 30 MG 1 capsule Orally once daily; Duration: 90 days Please hold until patient requests refills Active Pantoprazole Sodium 20 MG 1 tablet Orally Once a day; Duration: 90 days Please hold until patient requests refills Active Vitamin D 1 CAP(S) ORALLY ONCE DAILY Active Vital Signs Blood pressure systolic 120 mm Hg 09/09/19 25 Blood pressure diastolic 80 mm Hg 025 Heart Rate 81 /min 09/08/2024 Height 63 in 09/08/2024 Weight 154.8 lbs 09/08/2024 BMI 27.42 kg/m2 09/08/2024 Encounters Encounter Location Date [facility] [address] [place] [id number] 09/08/2024 Rupesh Gee Essential hypertensi on I10 ; Mixed hyperlipidemia E78.2 ; Gastroesophageal reflux disease, unspecified whether esophagitis present K21.9 ; Vitamin B12 deficiency E53.8 ; Vitamin D deficiency E55.9 ; Depression with anxiety F41.8 ; Intractable left heel pain M79.672 ; Calcaneal spur, left M77.32 and BMI 27.0-27.9,adult Z68.27 Assessments Encounter Date Diagnosis (ICD Code) Assessment Notes Treatment Notes Treatment Clinical Notes Section Notes 09/08/2024 Essential hypertension (ICD-10 - I10) 09/08/2024 Mixed hyperlipidemia (ICD-10 - E78.2) 09/08/2024 Gastroesophageal reflux disease, unspecified whether esophagitis present (ICD-10 - K21.9) 09/08/2024 Vitamin B12 deficiency (ICD-10 - E53.8) 09/08/2024 Vitamin D deficiency (ICD-10 - E55.9) 09/08/2024 Depression with anxiety (ICD-10 - F41.8) 09/08/2024 Intractable left heel pain (ICD-10 - M79.672) 09/08/2024 Calcaneal spur, left (ICD-10 - M77.32) 09/08/2024 BMI 27.0-27.9,adult (ICD-10 - Z68.27) Plan Of Treatment Medication Medication Name Sig Start Date Stop Date Notes amLODIPine Besylate 5 MG 1 tablet Orally Once a day; Duration: 90 days Please hold until patient requests refills Spironolactone 50 MG 1 tablet Orally Once a day; Duration: 90 days Please hold until patient requests refills Rosuvastatin Calcium 20 MG 1 tablet Oral ly once daily; Duration: 90 days Please hold until patient requests refills DULoxetine HCl 30 MG 1 capsule Orally once daily; Duration: 90 days Please hold until patient requests refills Pantoprazole Sodium 20 MG 1 tablet Orall y Once a day; Duration: 90 days Please hold until patient requests refills Referrals Referral Date Details 09/08/2024 09/08/2024, Rina cruz Next Appt Details Follow Up: 6 Months, Reason: Progress Notes * CHAPIN MILTONDOB:1965 ( 59 yo F)Acc No.[id number]:09/08/2024 Progress Notes Patient: CHAPIN LYN Provider: Eve Gee M.D. :1965 A ge:59 Y S ex:Female Date:09/08/2024 Address:[address], [place], [id number] Subjective: * Chief Complaints: * 1 . 6 months. * HPI: C ardiology: 59 year old female presents with c/o BloodPressure at Home T he patient is here for a check up on Hypertension and Hyperlipidemia. Pt states she doing good and denies any new concerns. Pt states she does not check her BP at home. Pt is fasting. Denies : Chest Pain. D enies : Short of Breath. D enies : Dizziness. D enies : Palpitations. * ROS: D ERMATOLOGY: no R zohra. n o H vladimir. G ASTROENTEROLOGY: no N ausea. n o V omiting. n o D iarrhea.? U ROLOGY: no D ifficulty urinating. n o B lood in urine. * Medical History: [facility] - Dr. Pelayo, Hypertension, Irritable Bowel Syndrome, Overactive Bladder, Esophageal Reflux, Vitamin D Deficiency, Vitamin B 12 Deficiency. * Surgical History: T ubal Ligation 06/2005, [facility], [facility], Gum Graft 04/2019, Colonoscopy 2017, Cholecystectomy - [facility] 05/17/2020, EGD, Dr. Piper 01/2021, Colonoscopy 10/2021. * Hospitalization/Major Diagno stic Procedure: E [facility] ER - reaction 04/26/2016. * Family History: [...] N .K.D.A. Objective: * Vitals: W t: 154.8, Temp: 98.9, BP: 120/80, HR: 81, Nurse: SMITA, Ht: 63, BMI:27.42. * Examination: C ardiology: General Appearance: p leasant, NAD. H eart sounds: R RR, normal S1, S2. L ungs: c lear, no rales or wheezes. E xtremities: no leg edema. P eripheral pulses: 2 plus bilateral. Assessment: * Assessment: 1. E ssential hypertension - I10 (Primary) 2 . M ixed hyperlipidemia - E78.2 3 . G astroesophageal reflux disease, unspecified whether esophagitis present - K21.9 4 . V itamin B12 deficiency - E53.8 5 . V itamin D deficiency - E55.9 6 . D epression with anxiety - F41.8 7 . I ntractable left heel pain - M79.672 8 . C alcaneal spur, left - M77.32 ? 9 . B ID 27.0-27.9,adult - Z68.27 Plan: * Treatment: Value Reference Range A /G Ratio 2.1 1.1-2.5 - * A lbumin 4.8 3.5-5.3 - g/dL * A lkaline Phosphatase 80 35-121 - IU/L * A LT (SGPT) 46 <5-47 - IU/L * A ST (SGOT) 30 <5-40 - IU/L * B ilirubin, Total 0.4 <0.2-1.2 - mg/dL * B UN 15 8-23 - mg/dL * C alcium 9.5 8.6-10.4 - mg/dL * C hloride 101 97-108 - mmol/L * C O2 26 22-32 - mmol/L * C reatinine 0.64 0.50-1.00 - mg/dL * G lucose 97 65-99 - mg/dL * P otassium 4.5 3.5-5.3 - mmol/L * S odium 140 135-145 - mmol/L * P rotein 7.1 6.0-8.3 - g/dL * e GFR by Creatinine 100 >59 - mL/min/1.73m2 * Sharonda Murillo 09/13/2024 12:4 8:48 PM > See phone encounter ?LAB: P-Microalbumin/Creatinine, Random Urine Sample (Collection Date & Time - 09/08/2024 10:25 AM)?Normal* Value Reference Range A lbumin/Creatinine Ratio, Urine <16.85 0-30 - ug /mg * C reatinine, Urine 17.8 - mg/dL * M icroalbumin, Urine, Random <0.3 - mg/dL * Sharonda Murillo 09/13/2024 12:4 8:48 PM > See phone encounter 2.?Mixed hyperlipidemia? Refill Rosuvastatin Calcium Tablet, 20 MG, 1 tablet, Orally, once daily, 90 days, 90, Refills 1, Notes to Pharmacist: Please hold until patient requests refills.?LAB: P-Comprehensive Metabolic Panel (CMP) (Collection Date & Time - 09/08/2024 10:25 AM)?Normal* Value Reference Range A /G Ratio 2.1 1.1-2.5 - * A lbumin 4.8 3.5-5.3 - g/dL * A lkaline Phosphatase 80 35-121 - IU/L * A LT (SGPT) 46 <5-47 - IU/L * A ST (SGOT) 30 <5-40 - IU/L * B ilirubin, Total 0.4 <0.2-1.2 - mg/dL * B UN 15 8-23 - mg/dL * C alcium 9.5 8.6-10.4 - mg/dL * C hloride 101 97-108 - mmol/L * C O2 26 22-32 - mmol/L * C reatinine 0.64 0.50-1.00 - mg/dL * G lucose 97 65-99 - mg/dL * P otassium 4.5 3.5-5.3 - mmol/L * S odium 140 135-145 - mmol/L * P rotein 7.1 6.0-8.3 - g/dL * e GFR by Creatinine 100 >59 - mL/min/1.73m2 * Sharonda Murillo 09/13/2024 12:4 8:48 PM > See phone encounter ?LAB: P-Lipid Panel (Collection Date & Time - 09/08/2024 10:25 AM)?Normal* Value Reference Range C holesterol / HDL Ratio 2.07 0.00-4.44 - Ratio * C holesterol 141 <200 - mg/dL * H DL Cholesterol 68 >39 - mg/dL * L DL Cholesterol (Calculation) 60 <130 - mg/d L * L DL/HDL Ratio 0.9 <3.3 - Ratio * N on-HDL Cholesterol 73 <130 - mg/dL * T riglycerides 65 <150 - mg/dL * Sharonda Murillo 09/13/2024 12:4 8:48 PM > See phone encounter ?LAB: P-TSH reflex to FT4 (Collection Date & Time - 09/08/2024 10:25 AM)? Normal* Value Reference Range T SH reflex to FT4 3.02 0.43-5.25 - mU/L * Sharonda Murillo 09/13/2024 12:4 8:48 PM > See phone encounter 3.?Gastroesophageal reflux disease, unspecified whether esophagitis present? Refill Pantoprazole Sodium Tablet Delayed Release, 20 MG, 1 tablet, Orally, Once a day, 90 days, 90Tablet, Refills 1, Notes to Pharmacist: Please hold until patient requests refills.??4.?Vitamin B12 deficiency?LAB: P-Vitamin B12 (Collection Date & Time - 09/08/2024 10:25 AM)?>2000* Value Reference Range V itamin B12 >2000 H 232-1245 - pg/mL * Sharonda Murillo 09/13/2024 12:4 8:48 PM > See phone encounter 5.?Vitamin D deficiency?LAB: P-Vitamin D 25-Hydroxy (Collection Date & Time - 09/08/2024 10:25 AM)? Normal* Value Reference Range V itamin D 25-Hydroxy 67.1 30.0-100.0 - ng/mL * Sharonda Murillo 09/13/2024 12:4 8:48 PM > See phone encounter 6.?Depression with anxiety? Refill DULoxetine HCl Capsule Delayed Release Particles, 30 MG, 1 capsule, Orally, once daily, 90 days, 90, Refills 1, Notes to Pharmacist: Please hold until patient requests refills.??7.?Calcaneal spur, left? Referral To:Rina Olivera??Podiatry ?Reason: 8.?Others? Referral To:Rina Olivera??Podiatry ?Reason: * Procedure Codes: 3 074F SYST BP LT 130 MM HG, 3079F DIAST BP 80-89 MM HG * Follow Up: 6 Months * Images: Billing Information: * Visit Code: 13142 Office Visit, Est Pt., Level 4. * Procedure Codes: 3074F SYST BP LT 130 MM HG. 3079F DIAST BP 80-89 MM HG. * Electronic signature of Aemlia Gee MD on 01/29/2025 at 09:09 AM EDT Sign off status: Pending * Provider: Eve Gee M.D. Date: 0 09/08/2024 Generated for Eduar cabral/Cindy/Sylwia on: 1 09:09 AM EDT History and Physical Notes * HPI (History of Present Illness) Category Sub-Category Detail Notes Category Not es Cardiology Short of Breath Chest Pain Palpitations Dizziness BloodPressure at Home The patient is her e for a check up on Hypertension and Hyperlipidemia. Pt states she doing good and denies any new concerns. Pt states she does not check her BP at home. Pt is fasting Examination Category Sub-Category Detail Notes Category Not es Cardiology Lungs: clear, no rales or wheezes Heart sounds: RRR, normal S1, S2 Extremities: no leg edema Peripheral pulses: 2 plus bilateral General Appearance: pleasant, NAD Consultation Request Notes Referral Date Referring Provider Referred Provider Not es 09/08/2024 Rupesh Gee Sofie
[2025-01-27 19:42] LABS: Coronavirus 19, PCR Not Detected (NotDetected); Influenza A, PCR Not Detected (NotDetected); Influenza B, PCR Not Detected (NotDetected)
--- OUTSIDE RECORDS SUMMARY | 2025-01-29 09:09 | XMS_ITS | Clinical Summary ---
[facility] Address [address] [place] [address] Care Team Providers Care Project Lead Name Role Phone Rupesh Gee MD Primary Care Provider + [phone] Family History Medical History Relation Name Comments [...] 2013 ZOSTER VACCINE (1 of 2) 2013 INFLUENZA VACCINE 11/24/2024 04/02/2020, 01/13/2019 MAMMOGRAM 11/29/2025 11/30/2023, 08/2022, 08/12/2021, Additional history exists Procedures Procedure [...] of concern indicated by the patient. A [place] marker is placed over a visible skin [...] Most Recently Relevant to Health Maintenance Insurance Y [address] [facility] [place] [address] [facility] PPO Care Teams Project Lead Relationship Specialty Start Date End Date Rupesh Gee MD [facility] [address] [place], [place] [id number] PCP - General 01/29/15
--- OUTSIDE RECORDS SUMMARY | 2025-01-29 09:10 | XMS_ITS | Patient Health Record ---
Author Organization [facility] Address [address] [facility] [address] [place] [id number] Care Team Providers Care Fur Scraper Name Role Phone Rupesh Gee Primary Care Provider [phone] Allergies No Known Allergies Results Component Value Reference Range Notes X ray : heel, left Reviewed date:08/25/2024 10:43:45 AM Interpretation:minimal plantar spur Performing Lab: Notes/Report: minimal plantar spur P-Vitamin B12 Reviewed date:09/13/2024 12:48:53 PM Interpretation:>2000 Performing Lab: Notes/Report: Test performed by [facility] [address] [place] [address] , [address], [place] [address] Gurinder Renae MD, Applied Technologist CLIA: [id number] Vitamin B12 >2000 232-1245 pg/mL P-Comprehensive Metabolic Pa deepika (CMP) Reviewed date:09/13/2024 12:48:53 PM Interpretation:Normal Performing Lab: Notes/Report: Test performed by [facility] [address] [place] [address] , [address], [place] [address] Gurinder Renae MD, Applied Technologist CLIA: [id number] Sodium 140 135-145 mmol/L Potassium 4.5 3.5-5.3 [...] Interpretation:Normal Performing Lab: Notes/Report: Test performed by [facility], [address] , [address], [place] [address] Gurinder Renae MD, Applied Technologist CLIA: [id number] Cholesterol 141 <200 mg/dL Triglycerides 65 <150 [...] Interpretation:Normal Performing Lab: Notes/Report: Test performed by [facility] [address] [place] [address] , [address], [place] [address] Gurinder Renae MD, Applied Technologist CLIA: [id number] TSH reflex to FT4 3.02 0.43-5.25 mU/L P-Microalbumin/Creatinine, R andom Urine Sample Reviewed date:09/13/2024 12:48:53 PM Interpretation:Normal Performing Lab: Notes/Report: Test performed by [facility] [address] [place] [address] , [address], [place] [address] Gurinder Renae MD, Applied Technologist CLIA: [id number] Albumin/Creatinine Ratio, Urine <16.85 0-30 ug/m g Microalbumin, Urine, Random <0.3 Creatinine, Urine 17.8 P-Vitamin D 25-Hydroxy Reviewed date:09/13/2024 12:48:53 PM Interpretation:Normal Performing Lab: Notes/Report: Test performed by [facility] [address] [place] [address] , [address], [place] [address] Gurinder Renae MD, Applied Technologist CLIA: [id number] Vitamin D 25-Hydroxy 67.1 30.0-100.0 ng/mL Interpretation [...] Vaccine Route Administration Date Status Comme nts COVID 19 Moderna Unknown 06/26/2020 Administered COVID 19 Moderna Unknown 07/24/2020 Administered COVID 19 Moderna Unknown 05/08/2021 Administered Fluzone Quad (6months&older) IM Intramuscular 01/13/2019 Administered Fluzone Quad (6months&older) IM Intramuscular 04/02/2020 Administered Fluzone Quad (6months&older) IM Intramuscular 03/24/2021 Administered Tetanus Tdap-Adacel (over 7yrs) IM Intramuscular 04/14/2014 Administered Problems Problem Type SNOMED Code ICD Code Onset Dates Problem Status W/U Status Risk Notes Problem Overactive bladder (676820966) Overactive bladder (N32.81) Active confirmed Problem Vitamin D deficiency (68612433) Vitamin D deficiency (E55.9) Active confirmed Problem Vitamin B12 deficiency (834605791) Vitamin B12 deficiency (E53.8) Active confirmed Problem Essential hypertension (40821063) Essential hypertension (I10) Active confirmed Problem Sciatic nerve lesion (340351638) Piriformis syndrome of left side (G57.02) Active confirmed Problem Mixed anxiety and depressive disorder (646288556) Depression with anxiety (F41.8) Active confirmed Problem Mixed hyperlipidemia (930111293) Mixed hyperlipidemia (E78.2) Active confirmed Problem Urge incontinence of urine (75034591) Urge incontinence (N39.41) Active confirmed Problem Constipation (31655198) Constipation, unspecified constipation type (K59.00) Active confirmed Problem Sciatica (37915582) Acute right- sided low back pain with right-sided sciatica (M54.41) Active confirmed Problem Irritable bowel syndrome characterized by constipation (260634335) Irritable bowel syndrome with constipation (K58.1) Active confirmed Problem Bladder spasm (560826703) Bladder spasm (N32.89) Active confirmed Problem Gastroesophageal reflux disease (528709021) Gastroesophageal reflux disease, unspecified whether esophagitis present (K21.9) Active confirmed Vital Signs Heart Rate 81 /min 09/08/2024 Blood pressure diastolic 80 mm Hg 09/08/2024 Height 63 in 09/08/2024 Blood pressure systolic 120 mm Hg 09/08/2024 Weight 154.8 lbs 09/08/2024 BMI 27.42 kg/m2 09/08/2024 Encounters Encounter Location Date Provider Diagnosis [facility] [address] [facility] [address], [place] [id number] 03/02/2024 Rupesh [place] Essential hypertensi on I10 and Pain in right hand M79.641 [facility] [address] [facility] [address], [place] [id number] 08/24/2024 Rupesh Ad[place] Pain of left heel M7 9.672 [facility] [address] [facility] [address], [place] [id number] 09/08/2024 Rupesh [place] Essential hypertensi on I10 ; Mixed hyperlipidemia E78.2 ; Gastroesophageal reflux disease, unspecified whether esophagitis present K21.9 ; Vitamin B12 deficiency E53.8 ; Vitamin D deficiency E55.9 ; Depression with anxiety F41.8 ; Intractable left heel pain M79.672 ; Calcaneal spur, left M77.32 and BMI 27.0-27.9,adult Z68.27 [facility] [address] [place], [place] [id number] 08/25/2024 Rupesh Adkins [facility] [address] [place], [place] [id number] 09/13/2024 Rupesh Adkins [facility] [address] [place], [place] [id number] 11/30/2024 Rupesh Adkins Essential hypertensi on I10 Assessments Encounter Date Diagnosis (ICD Code) Assessment Notes Treatment Notes Treatment Clinical Notes Section Notes 03/02/2024 Essential hypertension (ICD-10 - I10) 03/02/2024 Pain in right hand (ICD-10 - M79.641) Normal exam today, call with any new symptoms 08/24/2024 Pain of left heel (ICD-10 - M79.672) Home exercise program provided to patient Ice massage prn 09/08/2024 Essential hypertension (ICD-10 - I10) 09/08/2024 Mixed hyperlipidemia (ICD-10 - E78.2) 11/30/2024 Essential hypertension (ICD-10 - I10) 09/08/2024 Gastroesophageal reflux disease, unspecified whether esophagitis [...] NIDHI KWOK [employer] [address] [place] [address] [id number] 001 CHAPIN [place] Self - patient is the insured Medications Administered Medication Instructions Date of Administration Dosage Notes Dexamethasone 09/16/2011 1 mL Dexamethasone 08/14/2014 1 mL Dexamethasone 04/28/2016 1 mL Dexamethasone 12/21/2023 1 mL Medical (General) History 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 Piper 01/2021 Colonoscopy 10/2021 Hospitalization History Reason Date(Month/Year) [facility] - reacti on 04/26/2016
== END 2025-01-27 23:59 ==
LOC: LAB.DROPOF 01-29 09:01
PROVIDERS: PCP Nurse Practitioner Family; Visit Provider Nurse Practitioner Family
DX: J06.9 Acute upper respiratory infection, unspecified (principal)
CPT/HCPCS: 87631